=== PATIENT | female | born 1950 | race Caucasian/White ===

== ENCOUNTER → 2016-09-23 | Outpatient (CLI) | payer OTHER ==
--- NOTE | 2016-09-23 17:40 | MA ---
Screening Digital Mammogram with Digital Breast Tomosynthesis Clinical Indications: Routine screening. Previous history of breast cancer on the left. Technique: Standard cephalocaudal projections are obtained. Digital breast tomosynthesis was perform ed in the MLO projection with reconstruction at 1.0 mm slice thickness and composite MLO views recons tructed. This examination is processed by the CAD computer aided detection system. Comparison: July 21, 2016; April 12, 2016; October 07, 2015; and studies dating back to June 06, 2008. Breast density: B; There are scattered areas of fibroglandular density. Findings: CAD was reviewed. There are no new masses, new clusters of microcalcifications, or significant axillary lymphadenopathy . There are faint microcalcifications in the region of the lumpectomy site upper outer left breast. T his area had been recently biopsied with ultrasound guidance and revealed postsurgical changes includ ing fat necrosis. There is architectural distortion in this region also. Impression: Benign findings. BI-RADS 2. Recommendation: Routine screening mammogram is recommended in one year. [facility] will send a result letter to the patient. Negative mammography should not preclude additional workup of a clinically suspicious finding. The patient's information is entered into a reminder system with a target due date for her next mammo gram.
== END ==
LOC: FIMAGING 12:55
DX: Z12.31 Encounter for screening mammogram for malignant neoplasm of breast (principal); Z85.3 Personal history of malignant neoplasm of breast
CPT/HCPCS: G0202

== ENCOUNTER → 2017-06-01 | Outpatient (CLI) | payer OTHER | LOC: FIMAGING 14:00 | PROVIDERS: ATTEND Surgery | DX: R92.0 Mammographic microcalcification found on diagnostic imaging of breast (principal); C50.912 Malignant neoplasm of unspecified site of left female breast; Z80.3 Family history of malignant neoplasm of breast | CPT/HCPCS: G0206 ==

== ENCOUNTER → 2017-06-17 | Outpatient (CLI) | payer OTHER | LOC: FIMAGING 09:44 | PROVIDERS: ATTEND Internal Medicine Hematology & Oncology | DX: K76.0 Fatty (change of) liver, not elsewhere classified (principal) ==

== ENCOUNTER 2017-07-01 14:48 | Inpatient (IN) | payer OTHER ==
--- NOTE | 2017-07-01 15:51 | CPEKG ---
Heart Rate: 79 RR Interval: 759 P-R Interval: 196 QRSD Interval: 102 QT Interval: 396 QTC Interval: 455 P [place]: 50 QRS [place]: -7 T Wave [place]: 31 EKG Severity - BORDERLINE ECG - EKG Impression: SINUS RHYTHM EKG Impression: BORDERLINE R WAVE PROGRESSION, ANTERIOR LEADS EKG Impression: baseline artifact Electronically Signed By: Anali Mejía 01-Jul-2017 23:09:33
[2017-07-01] MEDS ORDERED: DIAZEPAM 10 MG/2 ML SYR ONE (16:12)
[2017-07-01] MEDS ORDERED: DIAZEPAM 10 MG/2 ML SYR IVP ONE (16:18)
[2017-07-01] MEDS ORDERED: ONDANSETRON 4 MG/2 ML VIAL IVP ONE ×2 (16:19→17:29)
--- NOTE | 2017-07-01 17:26 | EDPHY ---
H & P Smoking Status: Never smoked Time Seen by Provider: 07/01/17 16:59 HPI/ROS: CHIEF COMPLAINT: Neck pain HISTORY OF PRESENT ILLNESS: 67-year-old female presents to the emergency department by private vehicle complaining of severe left-sided neck pain. Patient states specially over the last 2 days she has had pain in the left side of her neck which is worse with movement. She states that she is cleaning out her basement and she may have overdone it. At 4 o'clock this morning she was a woken out of her sleep with severe pain in the left side of her neck. She has had radicular symptoms down her left arm. She has chronic numbness in both hands which she states is due to a magnesium deficiency. She denies chest pain or difficulty breathing. Denies a headache. She tried taking Robaxin without relief. No fevers or chills. She was feeling nauseous although no vomiting. REVIEW OF SYSTEMS: Constitutional: No fever, no chills. Eyes: No double or blurry vision. ENT: No sore throat. Respiratory: No cough, no shortness of breath. Cardiac: No chest pain. Gastrointestinal: Nausea. No abdominal pain, vomiting or diarrhea. Genitourinary: No dysuria. Musculoskeletal: Neck pain as above. Chronic back pain. Skin: No rashes. Neurological: No headache. (Steven Horton) Past Medical/Surgical History: Asthma GERD Graves, hypertension, sleep apnea, gout, cardiac arrhythmia with ablation, thyroid cancer, breast cancer in 2016 treated with lumpectomy and radiation. Lumbar fusion, bilateral knee replacements, hysterectomy, hypomagnesemia (Steven Horton) Social History: (Steven Horton) Physical Exam: General Appearance: Alert, no distress. Sitting upright in bed. Blood pressure 142/82, heart rate 91, 93% on room air, afebrile 36.5. Nontoxic appearing. Eyes: Pupils equal and round. Extraocular motions are all intact. ENT: Mouth: Mucous membranes moist. Respiratory: No wheezing, rhonchi, or rales, lungs are clear to auscultation. Cardiovascular: Regular rate and rhythm. Gastrointestinal: Abdomen is soft and nontender, no masses, no rebound or guarding, bowel sounds normal. Neurological: Alert and oriented x 3, cranial nerves II through XII grossly intact Skin: Warm and dry, no rashes. Musculoskeletal: Nontender to palpate along the cervical, thoracic or lumbar spine. Reproducible pain with palpation the left posterior aspect of her neck along the trapezius muscle. Patient has limited range of motion of her neck secondary to pain. Extremities: Full range of motion and no peripheral edema. Slight weakness in her left biceps compared to the right. Radial, medial, and ulnar nerves are all intact. Psychiatric: Patient is oriented X 3, there is no agitation. (Steven Horton) Constitutional: Initial Vital Signs Temperature (C) 36.5 C 07/01/17 14:58 Heart Rate 91 07/01/17 14:58 Respiratory Rate 18 07/01/17 14:58 Blood Pressure 142/82 H 07/01/17 14:58 O2 Sat (%) 93 07/01/17 14:58 O2 Delivery Mode Nasal Cannula O2 (L/minute) 2 Allergies/Adverse Reactions: cefazolin sodium [From Ancef] Allergy (Severe, Verified 02/27/16 17:08) SWELLING cephalexin monohydrate [From Keflex] Allergy (Severe, Verified 02/27/16 17:08) SWELLING Iodinated Contrast- Oral and IV Dye [IV Dye, Iodine Containing] Allergy (Severe , Verified 02/27/16 17:08) SWELLING Shellfish *RETIRED-05/22/12 [Shellfish] Allergy (Intermediate, Verified 17:08) iodine [Iodine] Allergy (Unknown, Verified 02/27/16 17:08) Penicillins Allergy (Unknown, Verified 02/27/16 17:08) Sulfa (Sulfonamide Antibiotics) Allergy (Unknown, Verified 02/27/16 17:08) amlodipine besylate [From Norvasc] Allergy (Verified 02/27/16 17:08) lisinopril Allergy (Verified 02/27/16 17:08) Home Medications: Medication Instructions Recorded Allopurinol [Allopurinol 300 MG 150 mg PO BID@07/16/14 (RX)] Aspirin EC [Aspirin EC 325 mg 325 mg PO DAILY@07/16/14 (OTC)] Atorvastatin Calcium [Lipitor 20 20 mg PO HS 07/16/14 mg (RX)] Calcium Carbonate [Tums 500MG 500 mg PO TID@,,07/16/14 (OTC)] Cholecalciferol (Vitamin D3) 2,000 unit PO DAILY@10 07/16/14 [Vitamin D3] Fluticasone/Salmeter 100/50Mcg 1 puffs IH BID 07/16/14 [Advair 100/50 (RX)] Levalbuterol Inhaler [Xopenex Hfa 1 - 2 puffs IH BID PRN 07/16/14 Inhaler (RX)] Levothyroxine [Synthroid] 175 mcg PO DAILY06 07/16/14 Magnesium Sulf 4 gm/Water 4 gm IV Q30D 07/16/14 [Magnesium Sulf 4 gm (Premix)] Ranitidine HCl 150 mg PO BID@,07/16/14 Valsartan [Diovan (RX)] 80 mg PO BID@,07/16/14 Amiloride [Amiloride 5 MG (RX)] 10 mg PO BID AT 7AM AND 3PM 07/01/17 Anastrozole [Arimidex 1 mg (*)] 1 mg PO DAILY@07/01/17 Calcitriol [Calcitriol (*)] 0.25 mg PO DAILY06 07/01/17 Felodipine [Plendil 5 MG (*)] 5 mg PO DAILY 07/01/17 Magnesium Chloride [Slow-Mag] 214.5 mg PO DAILY@02,13 07/01/17 Magnesium Oxide [Magnesium Oxide 1,200 mg PO DAILY@03,15,07/01/17 400 mg (*)] Methocarbamol [Robaxin 500 mg (*)] 1,000 mg PO HS 07/01/17 Methocarbamol [Robaxin 500 mg (*)] 500 mg PO TID 07/01/17 clonIDINE [Catapres-Tts 3] 1 each TD TU 07/01/17 Medical Decision Making - Diagnostics EKG Interpretation: 12 lead EKG is interpreted in Trace master View by emergency department physician. Baseline artifact. No acute ischemic changes. (Anali Mejía) Imaging Results: Imaging Impressions Cervical Spine MRI 07/01/17 17:29 Impression: 1. Multilevel spondylosis with disk and bony degenerative changes extending from the C2-C3 to the C6-C7 level and there is resulting multilevel canal stenosis and cord compression which has progressed mildly since 2010. 2. There is a eccentric disk abnormality towards the left at the C4-C5 level which is more pronounced than previously and may account for left radicular symptoms. 3. See above report for findings at specific levels. Results called and discussed with STEVEN HORTON on 07/01/2017 at 19:05 ED Course/Re-evaluation: 67-year-old female presents to the emergency department with neck pain. Given her symptoms as well as weakness in her left biceps, MRI of the cervical spine was ordered which revealed mild progression of cervical spine stenosis and cord compression at C2-C3, C4-5 especially on the left side, C6-7. The patient required IV morphine for pain relief. IV Valium did not relieve her pain. I discussed the findings of the MRI with the patient. The patient continued to have ongoing pain and required additional morphine IV. Patient will be admitted to the hospitalist, Dr. Moss. I spoke with the on-call neurosurgeon, Dr. Denisha Moreno, to make her aware that the patient is being admitted to the hospitalist the. Dr. Moreno was in the operating room at the time and then became disconnected via phone and did not call back. The patient has a history of arrhythmia and has had the above lesions. The patient is having left-sided neck pain was feeling nauseous. Cardiac enzymes, troponin was normal. EKG was unremarkable. The case was discussed with Dr. Anali Mejía, secondary supervising physician, who did not directly evaluate the patient but agrees with treatment and plan. ( Steven Horton) The patient was evaluated and managed by the physician tax assistant. I have reviewed this chart and I agree with the findings and plan of care as documented , as indicated by my signature. I am the secondary supervising physician. ( Anali Mejía) Differential Diagnosis: Neck pain including but not limited to muscular pain, herniated disc, spine fracture, dissection, cardiac arrhythmia (Steven Horton) - Data Points Laboratory Results: Laboratory Results 07/01/17 16:05 07/01/17 16:05 07/01/17 07/01/17 07/01/17 19:05 16:05 16:05 WBC 8.76 10^3/uL 10^3/uL (3.80-9.50) RBC 5.39 10^6/uL H 10^6/uL (4.18-5.33) Hgb 14.3 g/dL g/dL (12.6-16.3) Hct 44.8 % % (38.0-47.0) MCV 83.1 fL fL (81.5-99.8) MCH 26.5 pg L pg (27.9-34.1) MCHC 31.9 g/dL L g/dL (32.4-36.7) RDW 16.1 % H % (11.5-15.2) Plt Count 229 10^3/uL 10^3/uL (150-400) MPV 9.4 fL fL (8.7-11.7) Neut % (Auto) 65.9 % % (39.3-74.2) Lymph % (Auto) 22.9 % % (15.0-45.0) Evangeline % (Auto) 7.3 % % (4.5-13.0) Eos % (Auto) 3.1 % % (0.6-7.6) Baso % (Auto) 0.5 % % (0.3-1.7) Nucleat RBC Rel Count 0.0 % % (0.0-0.2) Absolute Neuts (auto) 5.77 10^3/uL 10^3/uL (1.70-6.50) Absolute Lymphs (auto) 2.01 10^3/uL 10^3/uL (1.00-3.00) Absolute Monos (auto) 0.64 10^3/uL 10^3/uL (0.30-0.80) Absolute Eos (auto) 0.27 10^3/uL 10^3/uL (0.03-0.40) Absolute Basos (auto) 0.04 10^3/uL 10^3/uL (0.02-0.10) Absolute Nucleated RBC 0.00 10^3/uL 10^3/uL (0-0.01) Immature Gran % 0.3 % % (0.0-1.1) Immature Gran # 0.03 10^3/uL 10^3/uL (0.00-0.10) Sodium 142 mEq/L mEq/L (134-144) Potassium 4.3 mEq/L mEq/L (3.5-5.2) Chloride 102 mEq/L mEq/L (97-110) Carbon Dioxide 26 mEq/l mEq/l (22-31) Anion Gap 14 mEq/L mEq/L (8-16) BUN 16 mg/dL mg/dL (7-23) Creatinine 0.9 mg/dL mg/dL (0.6-1.0) Estimated GFR > 60 Glucose 105 mg/dL H mg/dL (70-100) Calcium 9.3 mg/dL mg/dL (8.5-10.4) Magnesium 1.6 mg/dL mg/dL (1.6-2.3) Troponin I < 0.012 ng/mL ng/mL (0.000-0.034) Medications Given: Hydrocodone Bitart/Acetaminophen ([place] 5/325) 1 - 2 tab PO Q4HRS PRN PRN Reason: Pain, Moderate Able to Take PO Stop: 07/11/17 22:28 Last Admin: 07/01/17 23:03 Dose: 1 tab Ondansetron HCl (Zofran) 4 mg IVP Q4HRS PRN PRN Reason: Nausea/Vomiting, Can't Take PO Stop: 12/28/17 22:28 Last Admin: 07/01/17 23:03 Dose: 4 mg Discontinued Medications Diazepam (Valium Injection) 5 mg IVP EDNOW ONE Stop: 07/01/17 16:19 Last Admin: 07/01/17 16:18 Dose: 5 mg Morphine Sulfate (Morphine) 4 mg IVP EDNOW ONE Stop: 07/01/17 17:30 Last Admin: 07/01/17 17:43 Dose: 4 mg Morphine Sulfate (Morphine) 4 mg IVP EDNOW ONE Stop: 07/01/17 19:13 Last Admin: 07/01/17 19:18 Dose: 4 mg Ondansetron HCl (Zofran) 4 mg IVP EDNOW ONE Stop: 07/01/17 16:20 Last Admin: 07/01/17 16:22 Dose: 4 mg Ondansetron HCl (Zofran) 4 mg IVP EDNOW ONE Stop: 07/01/17 17:30 Last Admin: 07/01/17 17:42 Dose: 4 mg Promethazine HCl (Phenergan) 12.5 mg IVP EDNOW ONE Stop: 07/01/17 19:13 Last Admin: 07/01/17 19:17 Dose: 12.5 mg Departure - Departure Disposition: [facility] Inpatient Acute Clinical Impression: Cervical stenosis of spine, Neck pain Condition: Good
[2017-07-01 17:56] LABS: HEMATOCRIT 44.8 % (38.0-47.0); HEMOGLOBIN 14.3 g/dL (12.6-16.3); MEAN CELL HEMOGLOBIN 26.5 pg (27.9-34.1); MEAN CELL HEMOGLOBIN CONCENTR. 31.9 g/dL (32.4-36.7); MEAN CELL VOLUME 83.1 fL (81.5-99.8); MEAN PLATELET VOLUME 9.4 fL (8.7-11.7); PLATELET COUNT 229 10^3/uL (150-400); RED BLOOD CELL COUNT 5.39 10^6/uL (4.18-5.33); RED CELL DISTRIBUTION WIDTH 16.1 % (11.5-15.2)
[2017-07-01 17:57] LABS: % IMMATURE GRANULYOCYTES 0.3 % (0.0-1.1); ABSOLUTE IMMATURE GRANULOCYTES 0.03 10^3/uL (0.00-0.10); ADD DIFF? NO; ADD MORPH? NO; ADD SCAN? NO; ATYPICAL LYMPHOCYTE FLAG 0 (0-99); FRAGMENT RBC FLAG 0 (0-99); LEFT SHIFT FLG 0 (0-99); LIPEMIA HEMOLYSIS FLAG 80 (0-99); PLATELET CLUMPS FLAG 10 (0-99)
[2017-07-01 17:58] LABS: ANION GAP 14 mEq/L (8-16); CALCIUM 9.3 mg/dL (8.5-10.4); CARBON DIOXIDE 26 mEq/l (22-31); CHLORIDE 102 mEq/L (97-110); CREATININE 0.9 mg/dL (0.6-1.0); GLOMERULAR FILTRATION RATE > 60; GLUCOSE 105 mg/dL (70-100); POTASSIUM 4.3 mEq/L (3.5-5.2); SODIUM 142 mEq/L (134-144)
[2017-07-01 18:10] LABS: TROPONIN I < 0.012 ng/mL (0.000-0.034)
[2017-07-01] MEDS ORDERED: PROMETHAZINE HCL 25 MG/ML INJ IVP ONE (19:12)
[2017-07-01] MEDS ORDERED: PROMETHAZINE HCL 25 MG/ML INJ ONE (19:13)
[2017-07-01] MEDS ORDERED: HYDROmorphONE/DILAUDID 1 MG/ML INJ IVP PRN (22:29)
[2017-07-01] MEDS ORDERED: ONDANSETRON 4 MG/2 ML VIAL IVP PRN (22:29)
[2017-07-01] MEDS ORDERED: LORazepam 2 MG/ML INJ IVP PRN (22:29)
[2017-07-01] MEDS ORDERED: ACETAMINOPHEN 325 MG TAB PO PRN (22:29)
[2017-07-01] MEDS ORDERED: NS 1,000 ML IV SCH (22:30)
[2017-07-01] MEDS: HYDROCODONE/APAP 5/325 TAB PO PRN (23:03)
[2017-07-01] MEDS ORDERED: hydrALAZINE 20 MG/ML VIAL IVP PRN (23:49)
[2017-07-02] MEDS ORDERED: ALBUTEROL 3 ML DEYVIAL IH PRN (00:06)
[2017-07-02] MEDS: HYDROCODONE/APAP 5/325 TAB PO PRN ×3 (00:26→13:17)
[2017-07-02] MEDS: GABAPENTIN 100 MG CAP PO PRN ×2 (00:29→08:30)
--- NOTE | 2017-07-02 01:06 | GCON ---
[f rep st] CONSULTATION NEUROSURGICAL CONSULTATION DATE OF CONSULTATION: 07/02/2017 CHIEF COMPLAINT: Left trapezius pain, left deltoid pain. HISTORY OF PRESENT ILLNESS: This is a 67-year-old female with multiple medical problems, who is curr ently on chemotherapy for breast cancer, who states approximately 2 days ago she developed severe lef t-sided trapezius neck pain that was described as a deep dull ache with intermittent muscle spasm debra t radiates down to the lateral aspect of the deltoid on the left only. She denies any other arm pain . She denies any weakness, although they said in the emergency department she had some biceps weakne ss she did not notice. She does have hand paresthesias. She also states her hands develop paresthes ias and then get very cold and then get very hot and cool off. Usually her hand paresthesias are sec ondary to magnesium deficiency. She takes magnesium and they resolve. They did not resolve tonight. She came in for severe pain. The pain is worse with left neck rotation and is alleviated with rest. She states that it started approximately 2 days ago after cleaning out her basement. She does not h ave any other radicular type symptoms or arm pain. She denies any balance difficulties other than oc casionally she states she has felt off balance and it is more described as a lightheaded feeling more than it is a gait dysfunction, myelopathic type balance issue. She did take Robaxin to help treat her pain which she rated 4 to 5/10 without any relief. She has di fficulty taking many pain medications secondary to chronic renal failure. She denies any bowel or bl adder dysfunction. PAST MEDICAL HISTORY: Asthma, GERD, Grave's, hypertension, sleep apnea, gout, cardiac arrhythmia wit h ablation, thyroid cancer, breast cancer treated with lumpectomy and radiation and chemotherapy, lum bar fusion, bilateral knee replacements, hysterectomy, hypomagnesemia. PAST SURGICAL HISTORY: Bilateral total knees, cardiac ablation, hysterectomy, lumpectomy. FAMILY HISTORY: She does not have a family history significant for this complaint. SOCIAL HISTORY: She does not smoke. She does drink alcohol. She does not use illicit drugs. She i s . ALLERGIES: Cefazolin, sodium, cephalexin, monohydrate, oral and IV contrast dye, penicillins, Norvas c, lisinopril. HOME MEDICATIONS: 1. Robaxin. 2. Ranitidine. 3. Xopenex. 4. Amiloride. 5. Magnesium. 6. Flomax. 7. Plendil. 8. Magnesium sulfate. 9. Anastrazole. 10. Allopurinol. 11. Calcitriol. 12. Lipitor. 13. Tums. 14. Advair. 15. Vitamin D3. 16. Levothyroxine. 17. Clonidine. 18. Valsartan. 19. Aspirin. 20. Oral chemotherapeutic agent. REVIEW OF SYSTEMS: Complete 10 system review of systems performed by myself was negative except as s tated above. VITAL SIGNS: Blood pressure is 157/68, heart rate is 71, respiratory rate is 16, saturating 94% on 2 L nasal cannula. Temperature is 36.7 degrees Celsius. LABORATORY DATA: White blood cell count 8.76, hemoglobin 14.3, hematocrit 44.8, platelets are 229. Sodium 142, potassium 4.3, chloride 102. BUN 16, creatinine 0.2, glucose 105. MRI of the cervical spine performed today reveals cervical vertebral bodies are normal height signal intensity without compression fractures or spondylolisthesis at C1-2 articulation. Cranial vertebral junction appear normal. Cerebellar tonsils are in normal position. Cervical spinal cord demonstrat es normal signal without cord edema or myelomalacia. At C2-3, there is minimal bony spurring, no can al stenosis or disk herniation. At C3-4, a disk bulge is seen associated with vertebral body spondylo sis and endplate changes and there is resulting central canal stenosis that is mild with contacting o f the cord they call cord compression but contacting the cord at C3-4 and C4-5 there is a diffuse dis k bulge and subligamentous disk herniation resulting in canal stenosis and ventral cord compression a bnormalities, eccentric toward the left where there is lateral recess impingement in the medial aspec t of the neural foramina. At C5-6, there is minimal anterolisthesis of C6 with respect to C5 which is unchanged. There is mild diffuse disk bulge resulting in effacement of the subarachnoid space and mild cord compression. At C6-7, disk space loss and diffuse disk bulge resulting in effacement of the subarachnoid space and mi ld cord compression without nerve root impingement. At C7-T1, there is minimal anterolisthesis of C7 with respect to T1 without canal stenosis or cord compression. She is alert and oriented x3. Pupil s are equal, round, reactive to light and accommodation. External ocular muscles are intact. There is no facial asymmetry of tongue deviation. Sensation is intact V1, V2, V3 distributions 5th cranial nerve bilaterally. Strength is 5/5 to bilateral deltoids, biceps, triceps, wrist flexors, wrist ext ensors, hand intrinsics, iliopsoas, quadriceps, hamstrings, dorsiflexors, plantar flexors, EHLs. DTR s are +2/4 biceps, brachioradialis, patellar and Achilles. There is no Sears's. There is no clonu s. Sensation is intact to all dermatomal distributions of the upper and lower extremities bilaterall y. IMPRESSION AND PLAN: This is a 67-year-old female, some mild to moderate cervical spondylosis with s ome left-sided neck pain of 2 days with mild C5 radiculopathy to the lateral deltoid without any neur ologic deficit. She is a high risk from medical perspective for any kind of an invasive procedure, w hether it be an epidural steroid injection given the fact that she is on oral chemotherapeutic agent, or a cervical surgical intervention. At this point in time, there is no indication for surgery in this patient who is neurologically intac t. We recommend pain control and physical therapy and follow up as an outpatient. She was in agreem ent with this and she may follow up with our office in approximately 4 weeks after she has completed PT. Please call with any changes in her neurologic status. /[id number]/MODL
--- NOTE | 2017-07-02 01:20 | GHP ---
[f rep st] HISTORY AND PHYSICAL DATE OF ADMISSION: 07/01/2017 SOURCE: The patient provides history, appears reliable. Her electronic medical record also reviewed . CHIEF COMPLAINT: Left neck and arm pain. 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 The patient reports that she had been cleaning up her bas ement for the last several days and feels like she may have overexerted herself. She developed incre asing left neck pains and spasm with radiation down her shoulder to over her proximal arm. She has a history of persistent bilateral hand numbness and tingling, felt related to her history of electroly te abnormalities with her hypoparathyroidism, which is usually corrected with magnesium and calcium r eplacement. The patient reports that this is slightly worse. She has always had a little bit more w eakness on the left arm compared to the right. The patient initially thought that this was related t o her history of lumpectomy with lymph node dissection with resultant lymphedema on the left arm. Th e patient's pain was increasing in severity. She is not able to lift or hold any items. She denies any complete flaccidity, just weakness and decreased strength. The patient did try to take additiona l Robaxin without improvement in her pain. The patient was also concerned regarding her symptoms, sh e does have a history of ventricular arrhythmia and previous palpitations, which have been under cont rol, status post an ablation; however, her symptoms were similar in that she felt radiation from her left upper chest to her back, and up her neck and down her arm. The patient does admit to some assoc iated nausea, diaphoresis at time of onset earlier today before presenting to the emergency departmen t. The patient reports that she continues to have some numbness, tingling, and spasms in her left po sterior neck and down her shoulder over her arm. Her nausea, diaphoresis, and shortness of breath escobedo ve resolved. REVIEW OF SYSTEMS: GENERAL: No fevers chills. SKIN: No rash or sores. ENT: Positive for congest ion. No rhinorrhea. No sore throat. EYES: The patient does wear glasses. Denies any acute change in her vision. CV: The patient does report the chest pain as noted above in the HPI. No current p alpitations. RESPIRATORY: Positive for shortness of breath without any wheezing. The patient does report an asthma exacerbation 2 weeks ago, now resolved, currently without shortness of breath. GI: Positive for history of nausea, resolved. No vomiting or diarrhea. The patient reports that she ch ronically has some loose stools related to her scheduled magnesium intake, but denies any melena or h ematochezia. : No dysuria or hematuria. MUSCULOSKELETAL: See HPI. The patient otherwise denies myalgias. She does also have some neuropathy in the bilateral lower extremities. NEURO: Positive for headaches the last 2 days with increased pain and neck pain and spasm. 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 PSYCH: The patient denies anxiety or depression. ALLERGIES: Multiple, including cefazolin, Keflex, contrast, shellfish, iodine, sulfa, amlodipine fro m Norvasc, but the patient has been able to take felodipine on her home medication list, and lisinopr il. The patient is on valsartan. HOME MEDICATIONS: Methocarbamol 1000 mg p.o. at bedtime, 500 mg p.o. t.i.d. Ranitidine 150 mg p.o. b.i.d. Xopenex 1-2 puffs inhaled twice daily p.r.n. Amiloride 10 mg p.o. b.i.d. at 7 and 3. Magnes ium oxide 1200 mg p.o. at 3 a.m., p.m., 8 o'clock. Magnesium chloride 214.5 mg at 2 and 1300. Felod ipine 5 mg p.o. daily. Magnesium sulfate IV infusion 4 g every 30 days. Arimidex 1 mg p.o. daily at 5. Allopurinol 150 mg p.o. b.i.d. at 7 a.m. and p.m. Calcitriol 0.25 mg p.o. daily. Atorvastatin 20 mg p.o. at h.s. Calcium carbonate 500 mg p.o. t.i.d. at 10, 4, and 9. Advair 10/50 mcg 1 puff in haled twice daily. Vitamin D3 2000 units p.o. daily at 10. Levothyroxine 175 mcg p.o. daily at 6. Clonidine patch changed weekly on Tuesdays. Valsartan 80 mg p.o. b.i.d. at 8 and 5. Aspirin 325 mg p.o. daily at 10. PAST MEDICAL HISTORY: Significant for chronic neck and back pain, GERD, morbid obesity with current BMI of 49.4, CKD stage 3 with reported baseline creatinine of 1.2, gout, hyperlipidemia, hypertension , hypoparathyroidism status post parathyroidectomy, electrolyte imbalance related to above, hypothyro idism as a result of ERIKA for Graves disease, breast cancer status post lumpectomy with revision and l ymph node dissection on the left arm with lymphedema, parathyroid adenoma status post resection, asth ma, GUANAKO on CPAP, ventricular arrhythmia status post ablation. PAST SURGICAL HISTORY: Significant for cardiac ablation, parathyroidectomy, lumpectomy with revision and lymph node dissection on the left arm, lumbar fusion L5-S1, bilateral total knee arthroplasty, h ysterectomy, D and C. Prior to her TKA, she had multiple knee surgeries, she reports up to 10. FAMILY HISTORY: Significant for father with CAD and VA, at age 79 related to VA. Mother wi th history of CVA, CAD, and Graves disease. One sister with history of breast cancer. Another siste r with complications from surgery, . SOCIAL HISTORY: The patient is , lives with her . She does not smoke or drink or do d rugs. CODE STATUS: Full. Patient without advance directives, but desires her to act as proxy if n eeded. PHYSICAL EXAMINATION: PHYSICAL EXAMINATION: On arrival, blood pressure 142/82, heart rate 91, respi ratory rate 18, O2 saturation 93% on room air, temperature 36.5. Current blood pressure 157/68, hear t rate 71, respiratory rate 16, 94% on 2 L by nasal cannula, with a temperature 36.7. GENERAL: No a cute distress. Very pleasant, morbidly obese female sitting on the edge of the bed, holding her left arm resting at the side with decreased movement. HEAD: Normocephalic, atraumatic. EYES: Extraocu lar muscles are intact. Pupils equal, round, and reactive to light bilaterally and symmetrically. N o scleral icterus or conjunctival injection. ENT: Mucous membranes appear slightly dry. No pharyng eal erythema or exudates. NECK: Supple. Patient's trachea midline. Patient does have notable spas m and tenderness to the posterior base of the head and neck. She has some decreased range of motion, primarily related to pain. No meningeal signs. CV: Regular rate and rhythm. No murmurs, rubs, or gallops appreciated. RESPIRATORY: Diminished breath sounds bilaterally with decreased inspiratory effort, likely related to body habitus. No wheezes, rales, or rhonchi appreciated. ABDOMEN: Obese, soft, nontender to palpation. No rebound, guarding, or masses appreciated. : No suprapubic tend erness to palpation. No Ibarra in place. MUSCULOSKELETAL: Generalized deconditioning. The patient' s strength in the left arm proximally and distally are weaker as compared to the right side. The pat ient is able to move both arms with decreased range of motion on the left compared to the right. The patient is able to move her bilateral lower extremities. Sensation is diminished on the left latera l neck and shoulder and posterior arm, but otherwise sensation intact to the remainder of extremities . PSYCH: The patient's thought process, content, and questions are appropriate. She does appear a little bit anxious, but she is very pleasant. LABORATORY STUDIES: WBC 8.76, H and H are 14.3 and 44.8, MCV is 83.1, platelet count is 229. Sodium is 142, potassium 4.3, chloride 102, CO2 26, BUN 16, creatinine 0.9, GFR greater than 60, glucose 10 5, calcium 9.3, magnesium 1.6. Troponin is less than 0.012. EKG, reviewed myself: Normal sinus rhythm in the 70s. No acute ST changes. Some artifact at baseli ne. QTc 455. Cervical spine MRI report reviewed. Image review is limited on current computer access. The report shows multilevel spondylosis with disk and bony degenerative changes extending from C2 to C3 to the C 6-7, and resulting multilevel canal stenosis and cord compression with spurs progressed mildly since 2010. There is eccentric disk abnormalities toward the left at the C4-5 level, which is more pronoun umesh than previously, and may account for left radicular symptoms. C4-5 diffuse disk bulge or subliga mentous disk herniation resulting in canal stenosis and cord compression. ASSESSMENT AND PLAN: This pleasant 67-year-old female presents with [id number] left neck pain with radicular symptoms. 1. Cervical spine stenosis with disk herniation. Neurosurgery was consulted from the emergency depa rtment, and consultation to assist with recommendations was requested. Pending further evaluation, t he patient will be made n.p.o. except for medications. 2. Left neck pain with radicular symptoms. The patient continues to have significant pain and limit ed range of motion. Will do a trial of gabapentin p.r.n. Dilaudid and continue her Robaxin p.r.n. A lso will add a K-pad for some spasm activity that is likely related. 3. Left arm weakness. Awaiting neurosurgical recommendations and anticipate need for PT/OT. 4. Benign essential hypertension. Blood pressures at this time are acceptable. Resume the patient' s felodipine. Continue her clonidine patch and valsartan. 5. Gastroesophageal reflux disease. Continue H2 singh. 6. History of chronic kidney disease stage 3 with baseline creatinine 1.2. Creatinine currently imp roved. Will continue to monitor. Gentle hydration overnight. Monitor for fluid status. 7. Gout. Continue allopurinol. 8. Hyperlipidemia. Resume statin. 9. Hypoparathyroidism. Continue with aggressive electrolyte replacement with magnesium and oral garo cium. 10. Hypothyroidism. Continue levothyroxine. 11. Breast cancer. Resume the patient's Arimidex. 12. Asthma. Continue with the patient's regular inhaled steroid and long-acting beta-agonist. Albu terol nebulizer will be made available p.r.n. 13. Morbid obesity. Mobilization. Patient diet currently held. Will consider reduced-calorie diet . 14. Obstructive sleep apnea. Continue CPAP. The patient has brought her machine from home. 15. History of arrhythmia. Patient without any current complaints, and EKG is normal sinus. 16. Fluid, electrolyte, nutrition. Continue with some gentle intravenous fluid hydration overnight while the patient is n.p.o. Electrolyte replacement per her patient schedule and as needed. 17. Prophylaxis. Sequential compression devices, holding anticoagulation pending Neurosurgery recom mendations. 18. Code status is full. Patient without advance directives and desires to act as proxy if needed. DISPOSITION: Patient admitted to inpatient status on the ortho floor. Patient with significant pain and showing signs of weakness. Anticipate that she will require focused management for pain control while awaiting neurosurgical recommendations. /[id number]/MODL
--- NOTE | 2017-07-02 01:49 | PDMN ---
Medical Necessity Medical necessity: C/M review: est. > 2 MN LOS for eval and TX of acute and persistent cervical spine stenosis with disk herniation. significant left neck pain with radicular symptoms, left arm weakness requiring possible future acute inpt PT/OT, ongoing pain management, IV fluids, pulse oximetry, supplemental O2 , comorbid benign essential hypertension, GERD, gout, hyperlipidemia, hypoparathyroidism, asthma, morbid obesity, obstructive sleep apnea, Hx chronic stage 3 kidney disease, breast cancer, arrhythmia per H/P.
[2017-07-02] MEDS ORDERED: MAGNESIUM OXIDE 400 MG TAB PO SCH (02:00)
[2017-07-02] MEDS: MAGNESIUM OXIDE 400 MG TAB PO SCH ×2 (03:03→10:17)
[2017-07-02] MEDS: MAGNESIUM CHLORIDE 64 MG TAB PO SCH ×2 (03:05→08:33)
[2017-07-02 05:28] LABS: % IMMATURE GRANULYOCYTES 0.4 % (0.0-1.1); ABSOLUTE IMMATURE GRANULOCYTES 0.04 10^3/uL (0.00-0.10); ADD DIFF? NO; ADD MORPH? NO; ADD SCAN? NO; ATYPICAL LYMPHOCYTE FLAG 0 (0-99); FRAGMENT RBC FLAG 0 (0-99); HEMOGLOBIN 12.7 g/dL (12.6-16.3); LEFT SHIFT FLG 10 (0-99); LIPEMIA HEMOLYSIS FLAG 80 (0-99); MEAN CELL HEMOGLOBIN 26.8 pg (27.9-34.1); MEAN CELL HEMOGLOBIN CONCENTR. 31.8 g/dL (32.4-36.7); MEAN CELL VOLUME 84.4 fL (81.5-99.8); MEAN PLATELET VOLUME 8.8 fL (8.7-11.7); PLATELET CLUMPS FLAG 0 (0-99); PLATELET COUNT 192 10^3/uL (150-400); RED BLOOD CELL COUNT 4.74 10^6/uL (4.18-5.33); RED CELL DISTRIBUTION WIDTH 15.8 % (11.5-15.2)
[2017-07-02 05:40] LABS: INR 1.13 (0.83-1.16); PROTIME(PATIENT) 14.4 SEC (12.0-15.0)
[2017-07-02 05:41] LABS: APTT 35.6 SEC (23.0-38.0)
[2017-07-02 05:58] LABS: ANION GAP 13 mEq/L (8-16); CALCIUM 8.9 mg/dL (8.5-10.4); CARBON DIOXIDE 27 mEq/l (22-31); CHLORIDE 102 mEq/L (97-110); CREATININE 1.5 mg/dL (0.6-1.0); GLOMERULAR FILTRATION RATE 35; GLUCOSE 99 mg/dL (70-100); MAGNESIUM 1.8 mg/dL (1.6-2.3); POTASSIUM 4.8 mEq/L (3.5-5.2); SODIUM 142 mEq/L (134-144)
[2017-07-02] MEDS ORDERED: CALCITRIOL 0.25 MCG CAP PO SCH ×2 (06:00)
[2017-07-02] MEDS ORDERED: LEVOTHYROXINE 175 MCG TAB PO SCH (06:00)
[2017-07-02] MEDS ORDERED: ALLOPURINOL 300 MG TAB PO SCH (07:00)
[2017-07-02] MEDS ORDERED: AMILORIDE 5 MG TAB PO SCH (07:00)
[2017-07-02] MEDS ORDERED: VALSARTAN 80 MG TAB PO SCH (08:00)
[2017-07-02] MEDS ORDERED: FAMOTIDINE 20 MG TAB PO SCH (08:00)
[2017-07-02 08:14] VITALS: BP 137/76; TEMP 97.7
--- NOTE | 2017-07-02 08:14 | NEUSURGPN ---
Assessment/Plan: 67y/o female with left arm/neck pain with multi level spondylosis in her neck. She is undergoing active treatment for her breast CA. Would recommended optimizing pain management. PT/OT. Follow up with Dr. Moreno's office in 2- 4weeks. Please notify NS with any change in neuro/motor exam. Discussed with Dr. Moreno Subjective: left sided neck pain.shoulder pain. Denies any new weakness. Objective: NAD A&Ox3 MAEx4 5/5 and equal in BUE and BLE. Sensation intact. - Physician Discussed Patient with Dr.: Moreno Neurosurgery Physical Exam - Vitals, I&O, Labs I and O 07/01/17 07/02/17 07/03/17 05:59 05:59 05:59 Weight 122.1 kg Other: Intake Quantity Yes Sufficient Number of Voids Toilet 1 Vital Signs Temp Pulse Resp BP Pulse Ox 36.6 C 73 14 154/94 H 86 L 07/02/17 04:00 07/02/17 04:00 07/02/17 04:00 07/02/17 06:07 07/02/17 04:00 Laboratory Results 07/02/17 05:07 07/02/17 05:07 ICD10 Worksheet Patient Problems: Problems Problem Status Onset Cervical stenosis of spine Acute Neck pain Acute
--- NOTE | 2017-07-02 08:29 | HOSPPROG ---
Hospitalist Progress Note Assessment/Plan: Patient is a 67-year-old female with multiple medical problems. She presented to the emergency room with left neck pain and arm pain. She has a history of chronic neck and back pain. * neck pain. -the CT scan shows multiple level spondylosis with disc and bony degenerative changes extending from C2-C3 to C6-C7 resulting in multilevel canal stenosis and cord compression with spurs that is mildly progressed since 2010 there also multiple abnormalities. -reviewed neurosurgery notes they are recommending is for her to follow up with them and do pain management at this time -a trial of gabapentin p.r.n. and Robaxin has been added * breast cancer -resumed arm index * morbid obesity with a BMI of 49.2 *Asthma *Hyperlipidemia * gout * hypertension *hypoxemia -suspect she may have some underlying morbid obesity hypoventilation syndrome -will have the nursing staff check currently she is on room air. * plan. Possible discharge after further evaluation by her oxygen levels. And she is to see Dr. Moreno in the next 2 weeks. Subjective: Neck pain is on completely resolved. She is feeling much better Objective: Vital Signs Temp Pulse Resp BP Pulse Ox 36.5 C 73 16 137/76 H 93 07/02/17 08:00 07/02/17 08:00 07/02/17 08:00 07/02/17 08:00 07/02/17 08:00 Laboratory Results 07/02/17 05:07 07/02/17 05:07 PT 14.4 SEC (12.0-15.0) 07/02/17 05:07 INR 1.13 (0.83-1.16) 07/02/17 05:07 - Physical Exam Constitutional: no apparent distress, not in pain, obese Eyes: PERRL Ears, Nose, Mouth, Throat: hearing normal Cardiovascular: regular rate and rhythym Respiratory: no respiratory distress, reduced air movement (Bibasilar) Gastrointestinal: normoactive bowel sounds Skin: warm Musculoskeletal: generalized weakness Neurologic: AAOx3 Psychiatric: interacting appropriately, not anxious ICD10 Worksheet Patient Problems: Problems Problem Status Onset Cervical stenosis of spine Acute Neck pain Acute
[2017-07-02] MEDS ORDERED: FELODIPINE 5 MG TAB.ER PO SCH (09:00)
[2017-07-02] MEDS ORDERED: METHOCARBAMOL 500 MG TAB PO SCH ×2 (09:00→21:00)
[2017-07-02] MEDS ORDERED: FLUTICASONE/SALMETER 100/50MCG DISKUS IH SCH (09:00)
[2017-07-02] MEDS ORDERED: CHOLECALCIFEROL VIT D3 2,000 UNITS TAB/CAP PO SCH (10:00)
[2017-07-02] MEDS ORDERED: CALCIUM CARBONATE 500 MG CHEWABLE TAB PO SCH (10:00)
[2017-07-02] MEDS ORDERED: ASPIRIN EC 325 MG TAB PO SCH (10:00)
--- NOTE | 2017-07-02 10:19 | PDHOMEO2F ---
Home Oxygen Face to Face Home Orders: I certify that a physician or a nurse practitioner or physician's educational assistant teacher has had a [id number] encounter with this patient on the date of this order due to the diagnosis listed, which relates to the primary reason the patient requires home oxygen. Alternative treatments have been tried, or considered, and deemed ineffective. It is anticipated that supplemental oxygen will result in improvement with treatment. Home oxygen qualifying diagnosis: hypoventilatory syndrome secondary to obesity Home oxygen secondary diagnosis: asthma SpO2 on room air (%): 81% Frequency of home oxygen needed: continuous Home oxygen liters per minute: 2 Home oxygen delivery device: nasal cannula Concentrator: Yes E-tanks for mobility and back up: Yes If ordering portable O2, is the patient mobile in the home?: Yes I certify that, based on these findings, the home oxygen is medically necessary for this patient for the following length of time. Length of time home oxygen needed: 99 years
--- NOTE | 2017-07-02 10:22 | GDS ---
[f rep st] DISCHARGE SUMMARY DISCHARGE DIAGNOSES: 1. Neck pain. This is secondary to multilevel spondylosis in the neck area. 2. Breast cancer. 3. Morbid obesity with a BMI of 49. 4. Asthma. 5. Hyperlipidemia. 6. Gout. 7. Hypertension. 8. Hypoxemia. CONSULTATION: Dr. Denisha Moreno. HISTORY OF PRESENT ILLNESS: Briefly, this patient is a 67-year-old woman who presented to the emergency room with neck pain. She has multiple medical problems. She developed severe left trapezius/neck pain that was described as a deep dull ache with intermittent muscle spasms. She came in for severe pain. It was mainly worse in the left neck area and alleviated with rest. She does take Robaxin to help treat the pain. She was seen and evaluated by Neurosurgery, who said there was no indication for surgery in her because she is neurologically intact. Recommendation was pain control and outpatient physical therapy and occupational therapy. The recommendation was for her to follow up with Dr. Moreno in the outpatient setting in 4 weeks. HOSPITAL COURSE BY PROBLEM: 1. Neck pain. This is secondary to multilevel spondylosis. Recommend outpatient PT and OT. Will give her a script for 10 of [place] in case she has acute severe pain. In addition, will do a trial of Gabapentin. 2. Breast cancer. Resumed Arimidex. 3. Morbid obesity. She has a BMI of 49.2. This is likely impacting her health. 4. Asthma, stable. 5. Hyperlipidemia, on statin. 6. Gout. No complaints. 7. Hypertension. Blood pressure was stable. 8. Hypoxemia. I suspect she may have some hypoventilation syndrome secondary to her morbid obesity. Home oxygen has been ordered. CONDITION AT DISCHARGE: Stable. Blood pressure is 132/76, O2 sats on 2 L 93%, respiratory rate is 16, pulse 73, temperature is 36.7 Celsius. MEDICATIONS AT DISCHARGE: Please see the EMR. DISCHARGE INSTRUCTIONS: 1. To follow up with Dr. Moreno in 4 weeks. 2. Recommend outpatient physical therapy and occupational therapy. 3. If she develops any increased pain or loss of sensation to return to the ER. Copy requested to: Dr. Moreno /[id number]/MODL MTDD
[2017-07-02 10:37] VITALS: PULSE 74; RESP 18; O2SAT 86
--- NOTE | 2017-07-02 13:48 | ASDISCHSUM ---
Discharge Information Plan Status:Home with No Needs Medically Cleared to Leave: Discharge Date:07/02/2017 01:31 PM CM D/C Disposition:Home, Routine, Self-Care ADT D/C Disposition:Home, Routine, Self-Care Projected Discharge Date:07/02/2017 01:31 PM Transportation at D/C: Discharge Delay Reason: Follow-Up Date:07/02/2017 01:31 PM Discharge Slot: Final Diagnosis: Placement Information Patient Contact Information Contact Name:DANISHBARBRAVI Relationship: Address:[address] City:[place] Alternate Phone: [facility]/Zip Code:[place] [address] Email: Financial Information Financial Class: Primary Plan Desc:MEDICARE OUTPATIENT Primary Plan Number:[id number] Secondary Plan Desc:[facility] [employer] Secondary Plan Number:[id number] Assessment Information Intervention Information Intervention Type:*Incorrect Registration Date of Service:07/01/2017 10:29 PM Patient Type:Inpatient Staff Member:MARIA ISABEL Griffin Shelly Hours:0.25 Discipline: Severity:1 (0-1 Hours) Comment:Registered observation, admit order wr itten inpatient status.
[2017-07-02] MEDS ORDERED: ANASTROZOLE 1 MG TAB PO SCH (17:00)
[2017-07-02] MEDS ORDERED: ATORVASTATIN CALCIUM 20 MG TAB PO SCH (21:00)
== END 2017-07-02 13:31 | disposition home or self-care (01) | DRG 552 ==
LOC: F3N 20:42 → OBSVTOIN 22:29
PROVIDERS: ADMIT Family Medicine; ATTEND Family Medicine
DX: M47.22 Other spondylosis with radiculopathy, cervical region (principal); M48.02 Spinal stenosis, cervical region; M50.10 Cervical disc disorder with radiculopathy, unspecified cervical region; E83.42 Hypomagnesemia; I12.9 Hypertensive chronic kidney disease with stage 1 through stage 4 chronic kidney disease, or unspecified chronic kidney disease; N18.3 Chronic kidney disease, stage 3 (moderate); G47.33 Obstructive sleep apnea (adult) (pediatric); E66.01 Morbid (severe) obesity due to excess calories; Z68.42 Body mass index [BMI] 45.0-49.9, adult; K21.9 Gastro-esophageal reflux disease without esophagitis; E78.5 Hyperlipidemia, unspecified; E05.00 Thyrotoxicosis with diffuse goiter without thyrotoxic crisis or storm; M10.9 Gout, unspecified; J45.909 Unspecified asthma, uncomplicated; Z98.1 Arthrodesis status; Z96.653 Presence of artificial knee joint, bilateral; Z85.850 Personal history of malignant neoplasm of thyroid; Z85.3 Personal history of malignant neoplasm of breast
CPT/HCPCS: 96374; J2405; J2550

== ENCOUNTER → 2017-07-22 | Outpatient (CLI) | payer OTHER | LOC: FIMAGING 11:20 | PROVIDERS: ATTEND Physician Assistant | DX: M79.604 Pain in right leg (principal); R09.02 Hypoxemia ==

== ENCOUNTER → 2017-08-03 | Outpatient (CLI) | payer OTHER ==
[~2017-08-03] MED LIST: IOPAMIDOL (ISOVUE 370) 100 ML BTL IV ONE
== END ==
LOC: FIMAGING 10:44
PROVIDERS: ATTEND Physician Assistant
DX: R09.02 Hypoxemia (principal); R79.89 Other specified abnormal findings of blood chemistry; I25.10 Atherosclerotic heart disease of native coronary artery without angina pectoris; J98.11 Atelectasis
CPT/HCPCS: 71275; Q9967

== ENCOUNTER → 2017-08-19 | Outpatient (CLI) | payer OTHER | LOC: BHFA 09:30 | PROVIDERS: ATTEND Internal Medicine Cardiovascular Disease | DX: R00.2 Palpitations (principal); E78.00 Pure hypercholesterolemia, unspecified; R09.02 Hypoxemia; I10 Essential (primary) hypertension | CPT/HCPCS: 78452; 93017; A9500; J2785 ==

== ENCOUNTER 2017-09-09 07:31 | Day surgery (SDC) | payer OTHER ==
[2017-09-09] MEDS ORDERED: DIAZEPAM 5 MG TAB PO ONE (07:32)
[2017-09-09] MEDS ORDERED: methylPREDNISolone SOD SUCC 125 MG/2 ML VIAL IVP ONE (07:32)
[2017-09-09] MEDS ORDERED: NS 1,000 ML IV ONE (07:32)
[2017-09-09] MEDS ORDERED: ASPIRIN EC 325 MG TAB PO ONE (07:32)
[2017-09-09] MEDS ORDERED: FAMOTIDINE 20 MG/NACL 50 ML IV ONE (07:32)
--- NOTE | 2017-09-09 07:59 | CPEKG ---
Heart Rate: 93 RR Interval: 645 P-R Interval: 220 QRSD Interval: 114 QT Interval: 360 QTC Interval: 448 P [place]: 46 QRS [place]: -5 T Wave [place]: 15 EKG Severity - ABNORMAL ECG - EKG Impression: SINUS RHYTHM EKG Impression: FIRST DEGREE AV BLOCK EKG Impression: NONSPECIFIC INTRAVENTRICULAR CONDUCTION DELAY EKG Impression: BORDERLINE R WAVE PROGRESSION, ANTERIOR LEADS EKG Impression: CONSIDER Q WAVE IN INFERIOR LEADS Electronically Signed By: Sheng Nam 09-Sep-2017 09:30:12
[2017-09-09 08:23] LABS: PLATELET COUNT 185 10^3/uL (150-400)
[2017-09-09] MEDS ORDERED: methylPREDNISolone SOD SUCC 125 MG/2 ML VIAL ONE (08:24)
[2017-09-09] MEDS ORDERED: FAMOTIDINE 20 MG/NACL/50 ML BAG IV ONE (08:24)
[2017-09-09 08:33] LABS: INR 0.99 (0.83-1.16); PROTIME(PATIENT) 13.3 SEC (12.0-15.0)
[2017-09-09] MEDS ORDERED: LIDOCAINE 1% 300 MG/30 ML SDV ONE (08:43)
[2017-09-09] MEDS ORDERED: VERAPAMIL 5 MG/2 ML VIAL ONE (08:43)
[2017-09-09] MEDS ORDERED: fentaNYL 100 MCG/2 ML INJ ONE (08:43)
[2017-09-09] MEDS ORDERED: MIDAZOLAM 2 MG/2 ML VIAL ONE (08:43)
[2017-09-09] MEDS ORDERED: HEPARIN 10,000 UNIT/10 ML MDV ONE (08:43)
[2017-09-09] MEDS ORDERED: IOPAMIDOL (ISOVUE-370) 150 ML BTL IV ONE (08:44)
--- NOTE | 2017-09-09 09:05 | PDHPUP ---
History & Physical Update H&P update statement: This history and physical update is based on an assessment of the patient which was completed after admission or registration (within 24 hours), but prior to the surgery/procedure. H&P update: H&P reviewed & patient examined, no change in patient's condition since H&P completed
--- NOTE | 2017-09-09 09:05 | PDPROPOC ---
Sedation Plan of Care Sedation Plan of Care: vital signs stable, mental status noted, patient educated of risks, benefits, alternatives, patient can tolerate sedation ASA Classification: ASA 3 Planned drugs: fentanyl, midazolam Mallampati Score: Class 2 Mallampati Reference Image: Patient passed 3-3-2 rule?: Yes
[2017-09-09] MEDS ORDERED: NITROGLYCERIN 1,500 MCG/15 ML VIAL MISC ONE (09:42)
[2017-09-09] MEDS ORDERED: NITROGLYCERIN 0.4 MG BTL SL PRN (10:08)
--- NOTE | 2017-09-09 10:10 | PDDXCAT ---
Diagnostic Cath Note - . Date: 09/09/17 Nurse Coordinator: Meño Indication: Class III or IV angina, which improves to class I/II w medical therapy High-risk criteria on non-invasive testing: stress-induced moderate-size multiple perfusion defects - Procedure Access: left wrist Procedure: left heart catheterization, coronary angiography - Materials Left Heart Cath materials: standard multipack (JL4, JR4, pigtail) - Findings-Left Heart Catheterization LM: 2 separate ostia for the LAD and circumflex LAD: Unobstructed with unique ostium LCX: Unobstructed with unique ostium RCA: Dominant: Anterior takeoff: Unobstructed EDP: 18 mm of mercury LVEF: 60 Wall motion: Normal Complications: None Estimated blood loss: <50ml Closure method: TR Band Assessment: Angiographically normal coronary arteries. Normal LV systolic function with normal filling pressures. Plan: Continue primary prevention. Patient Problems: Problems Problem Status Onset Cervical stenosis of spine Acute Neck pain Acute
[2017-09-09] MEDS ORDERED: MAGNESIUM SULF 2 GM/WATER 50 ML IV ONE (10:32)
== END 2017-09-09 14:05 | disposition home or self-care (01) ==
LOC: FCATH 07:31
PROVIDERS: ATTEND Internal Medicine Interventional Cardiology
DX: R07.9 Chest pain, unspecified (principal); R06.02 Shortness of breath; I44.0 Atrioventricular block, first degree; I25.10 Atherosclerotic heart disease of native coronary artery without angina pectoris; E78.5 Hyperlipidemia, unspecified; I10 Essential (primary) hypertension; G47.33 Obstructive sleep apnea (adult) (pediatric); J45.909 Unspecified asthma, uncomplicated; K21.9 Gastro-esophageal reflux disease without esophagitis; E03.9 Hypothyroidism, unspecified; Z85.3 Personal history of malignant neoplasm of breast; Z96.652 Presence of left artificial knee joint
CPT/HCPCS: 93005; 93458; C1769; J1200; J1644; J2250; J2930; J3010; Q9967

== ENCOUNTER → 2017-09-26 | Outpatient (CLI) | payer OTHER | LOC: FIMAGING 10:48 | PROVIDERS: ATTEND Internal Medicine Hematology & Oncology | DX: Z12.31 Encounter for screening mammogram for malignant neoplasm of breast (principal); Z85.3 Personal history of malignant neoplasm of breast; Z80.3 Family history of malignant neoplasm of breast ==

== ENCOUNTER → 2017-10-19 | Outpatient (CLI) | payer OTHER | LOC: FIMAGING 14:01 | PROVIDERS: ATTEND Internal Medicine Hematology & Oncology | DX: Z13.820 Encounter for screening for osteoporosis (principal); Z78.0 Asymptomatic menopausal state; Z85.850 Personal history of malignant neoplasm of thyroid; Z85.3 Personal history of malignant neoplasm of breast ==

== ENCOUNTER 2017-12-21 06:39 | Inpatient (IN) | payer OTHER ==
[~2017-12-21 06:39] MED LIST changes: -IOPAMIDOL (ISOVUE 370) 100 ML BTL IV ONE; +VANCOMYCIN 1.5 GM in NS 250 ML IV ONE
[2017-12-21] MEDS ORDERED: ACETAMINOPHEN 500 MG TAB PO ONE (07:10)
[2017-12-21] MEDS ORDERED: LIDOCAINE 1% 2 ML INJ ID PRN (07:11)
[2017-12-21] MEDS ORDERED: LR 1,000 ML IV ONE (07:11)
[2017-12-21] MEDS ORDERED: CHLORHEXIDINE GLUC HIBICLENS 118 ML BTL TP ONE (07:43)
[2017-12-21] MEDS ORDERED: SURGIFLO MATRIX KIT WITH THROMBIN 8ml TP ONE ×3 (07:43→13:06)
[2017-12-21] MEDS ORDERED: BUPIVACAINE 0.25% 30 ML SDV ONE (07:43)
[2017-12-21] MEDS ORDERED: THROMBIN (BOVINE) 5,000 UNIT VIAL TP ONE (07:43)
[2017-12-21] MEDS ORDERED: BACITRACIN 50,000 UNITS/10 ML SYR IRR ONE (07:44)
--- NOTE | 2017-12-21 07:52 | PDANEPAE ---
ANE History of Present Illness C3-6 ACDF ANE Past Medical History - Cardiovascular History Hx Hypertension: Yes Hx Arrhythmias: Yes Hx Chest Pain: No Hx Coronary Artery / Peripheral Vascular Disease: Yes Hx CHF / Valvular Disease: No Hx Palpitations: No Cardiovascular History Comment: LEFT VENTRICULAR HYPERTROPHY. HYPERCHOLESTEROLEMIA. CARDIAC ABLATIONS X2 2008 AND 2009. RUNS LOW PULSE RATE NOCTURNALLY - Pulmonary History Hx COPD: No Hx Asthma/Reactive Airway Disease: Yes Hx Recent Upper Respiratory Infection: No Hx Oxygen in Use at Home: Yes O2 in Use at Home (L/minute): O2 W/CPAP Hx Sleep Apnea: Yes Sleep Apnea Screening Result - Last Documented: Positive Pulmonary History Comment: ASTHMA. GUANAKO POSITIVE USES CPAP - Neurologic History Hx Cerebrovascular Accident: No Hx Seizures: No Hx Dementia: No Neurologic History Comment: HX OF FUSION - Endocrine History Hx Diabetes: No Obesity: yes, severe Endocrine History Comment: TOTAL THYROIDECTOMY (L) 2011 AND PARATHYROIDECTOMY 2012. MAGNESIUM AND CALCIUM RUNS VERY LOW. THYROID CA - Renal History Hx Renal Disorders: No Renal History Comment: BORDERLINE CKD DUE TO MEDS - Liver History Hx Hepatic Disorders: No - Neurological & Psychiatric Hx Hx Neurological and Psychiatric Disorders: No - Cancer History Hx Cancer: Yes Cancer History Comment: THYROID CA WITH RADIATION. SQUAMOUS AND BASAL CELL. BREAST CANCER - LUMPECTOMIES L. RADIATION - Congenital Disorder History Hx Congenital Disorders: No - GI History Hx Gastrointestinal Disorders: Yes Gastrointestinal History Comment: REFLUX - Other Health History Other Health History: VOCAL CORDS ARE DAMAGED FROM SURGERY SPEAKS VERY SOFTLY - Chronic Pain History Chronic Pain: Yes (SHOULDER & NECK) - Surgical History Prior Surgeries: LT BREAST EXC MASS 10/07/15. CARDIAC CATHS 1997,2001,2008 AND 2009. TOTAL HYSTERECTOMY 07/2015. CARDIAC ABLATION 2008 AND 2009. WEDGE REPAIR OF VOCAL CORD. ACHILLES TENDON REPAIR 1996. BACK SURGERY SPINAL FUSION L3-4 1999. BONE SPUR REMOVAL 03/13/06. LEFT BREAST BX 01/2002. RIGHT BREAST BX 1984. ENDOMETRIAL BX. LEFT TKA 2006. RIGHT TKA 2007. ROBERTO -THYROIDECTOMY X2. PARA THYROIDECTOMY. ANE Review of Systems Review of systems is: negative Review of Systems: - Exercise capacity METS (RN): 4 METS ANE Patient History - Allergies Allergies/Adverse Reactions: amlodipine [From Norvasc] Allergy (Severe, Verified 09/09/17 08:34) Wheezing amlodipine besylate [From Norvasc] Allergy (Severe, Verified 09/09/17 08:27) Hypotension cefazolin sodium [From Ancef] Allergy (Severe, Verified 12/15/17 11:03) anaphalaxis cephalexin monohydrate [From Keflex] Allergy (Severe, Verified 12/15/17 11:03) Anaphylaxis doxycycline Allergy (Severe, Verified 12/15/17 11:03) Rash - takes with Benadryl hydrochlorothiazide Allergy (Severe, Verified 09/09/17 08:30) Rash hydromorphone [From Dilaudid] Allergy (Severe, Verified 09/09/17 08:33) Other-Enter Comments indomethacin Allergy (Severe, Verified 12/15/17 11:03) Rash,hives Iodinated Contrast- Oral and IV Dye [IV Dye, Iodine Containing] Allergy (Severe , Verified 12/15/17 11:03) SWELLING, hives iodine [Iodine] Allergy (Severe, Verified 09/09/17 08:27) Rash labetalol Allergy (Severe, Verified 09/09/17 08:29) Hypotension levofloxacin [From Levaquin] Allergy (Severe, Verified 09/09/17 08:28) Other-Enter Comments lisinopril Allergy (Severe, Verified 09/09/17 08:27) Hypotension losartan [From Cozaar] Allergy (Severe, Verified 09/09/17 08:30) Hypotension nitrofurantoin [From Macrodantin] Allergy (Severe, Verified 09/09/17 08:27) Hives Penicillins Allergy (Severe, Verified 09/09/17 08:27) Anaphylaxis Sulfa (Sulfonamide Antibiotics) Allergy (Severe, Verified 09/09/17 08:27) Anaphylaxis tramadol Allergy (Severe, Verified 09/09/17 08:32) Other-Enter Comments verapamil Allergy (Severe, Verified 09/09/17 08:34) Rash Shellfish *RETIRED-05/22/12 [Shellfish] Allergy (Intermediate, Verified 08:28) povidone-iodine [From Betadine] Allergy (Verified 12/15/17 11:03) weepy blisters soap [From Betadine] Allergy (Verified 12/15/17 11:03) weepy blisters - Home Medications Home Medications: Allopurinol [Allopurinol 300 MG (RX)] 150 mg PO BID 07/16/14 [Last Taken ] Aspirin EC [Aspirin EC 325 mg (*)] 325 mg PO DAILY 07/16/14 [Last Taken 12/14/17 ] Atorvastatin Calcium [Lipitor 20 mg (*)] 20 mg PO HS 07/16/14 [Last Taken ] Calcium Carbonate [Tums 500MG (*)] 500 mg PO TID 07/16/14 [Last Taken 12/20/17] Cholecalciferol (Vitamin D3) [Vitamin D3] 4,000 unit PO DAILY@07/16/14 [Last Taken 12/21/17] Levalbuterol Inhaler [Xopenex Hfa Inhaler (*)] 1 - 2 puffs IH BID PRN 07/16/14 [ Last Taken 12/21/17] Magnesium Sulf 4 gm/Water [Magnesium Sulf 4 gm (Premix)] 4 gm IV Q30D 07/16/14 [Last Taken 12/20/17] Ranitidine HCl 150 mg PO BID@,07/16/14 [Last Taken 12/21/17] Valsartan [Diovan (*)] 80 mg PO BID@,07/16/14 [Last Taken 12/20/17] Amiloride 10 mg PO BID@,07/01/17 [Last Taken 12/20/17] Anastrozole [Arimidex 1 mg (*)] 1 mg PO DAILY@07/01/17 [Last Taken 12/20/17] Calcitriol [Calcitriol (*)] 0.25 mg PO DAILY10 07/01/17 [Last Taken 12/20/17] Magnesium Oxide [Magnesium Oxide 400 mg (*)] 1,200 mg PO TID@,,07/01/17 [ Last Taken 12/21/17] Felodipine [Plendil 5 MG (*)] 5 mg PO DAILY 09/07/17 [Last Taken 12/21/17] Gabapentin [Neurontin 100 MG (*)] 200 mg PO HS 09/07/17 [Last Taken 12/20/17] Levothyroxine [Synthroid 137 mcg (*)] 137 mcg PO DAILY06 09/07/17 [Last Taken ] Magnesium Chloride [Slow-Mag] 1 each PO DAILY@17 09/07/17 [Last Taken 12/21/17] Magnesium Chloride [Slow-Mag] 2 each PO DAILY 09/07/17 [Last Taken 12/21/17] Methocarbamol [Robaxin 500 mg (*)] 500 mg PO TID PRN 09/07/17 [Last Taken ] clonIDINE [Catapres-Tts (*)] 0.3 mg TD TU@21 09/07/17 [Last Taken 12/21/17] Fluticasone/Salmeter 250/50Mcg [Advair 250/50 (*)] 1 puffs IH BID 12/13/17 [ Last Taken 12/21/17] Spironolactone [Aldactone 25 MG (*)] 25 mg PO DAILY@14 12/13/17 [Last Taken 06/29] - Smoking Hx Smoking Status: Never smoked - Family Anes Hx Family Hx Anesthesia Complications: NONE ANE Labs/Vital Signs - Labs Result Diagrams: 12/21/17 07:30 - Vital Signs Height: 157.48 cm Weight: 127.006 kg ANE Physical Exam - Airway Neck exam: decreased ROM Mallampati Score: Class 2 Mouth exam: normal dental/mouth exam - Pulmonary Pulmonary: no respiratory distress - Cardiovascular Cardiovascular: regular rate and rhythym - ASA Status ASA Status: IV ANE Anesthesia Plan Anesthesia Plan: general endotracheal anesthesia Lines/Monitors: arterial line, additional IV Specialized Airway: video laryngoscope
[2017-12-21] MEDS ORDERED: fentaNYL 100 MCG/2 ML INJ ONE ×2 (08:13→15:14)
[2017-12-21] MEDS ORDERED: PROPOFOL/EMULSION 500 MG/50 ML BOTTLE IV ONE (08:14)
[2017-12-21] MEDS ORDERED: REMIFENTANIL HCL 1 MG VIAL ONE ×3 (08:14→12:43)
[2017-12-21] MEDS ORDERED: PROPOFOL 200 MG/20 ML VIAL ONE ×6 (08:14→12:44)
[2017-12-21] MEDS ORDERED: LIDOCAINE 2% 5 ML SDV ONE (08:19)
[2017-12-21] MEDS ORDERED: PHENYLEPHRINE 10 MG/ML SDV ONE (08:34)
[2017-12-21] MEDS ORDERED: ONDANSETRON 4 MG/2 ML VIAL ONE ×2 (08:40→14:52)
[2017-12-21] MEDS ORDERED: DEXAMETHASONE 4 MG/ML VIAL ONE (08:40)
[2017-12-21] MEDS ORDERED: PHENYLEPHRINE HCL 100 MCG/ML SYR ONE (09:54)
[2017-12-21] MEDS ORDERED: MAGNESIUM SULF 1 GM/DEXTROSE 100 ML IV ONE (10:00)
[2017-12-21] MEDS ORDERED: CALCIUM CHLORIDE 1 GM/10 ML INJ ONE (12:23)
[2017-12-21] MEDS ORDERED: HYDROCODONE/APAP 5/325 TAB PO PRN (13:13)
[2017-12-21] MEDS ORDERED: PHENYLEPHRINE HCL 100 MCG/ML SYR IVP PRN (13:13)
[2017-12-21] MEDS ORDERED: ONDANSETRON 4 MG/2 ML VIAL IVP PRN ×2 (13:13→14:31)
[2017-12-21] MEDS ORDERED: epHEDrine SULFATE 10 MG/ML SYR IVP PRN (13:13)
[2017-12-21] MEDS ORDERED: PROMETHAZINE HCL 25 MG/ML INJ IVP PRN (13:13)
[2017-12-21] MEDS ORDERED: NALOXONE HCL 0.4 MG/ML INJ IVP PRN ×2 (13:13)
[2017-12-21] MEDS ORDERED: ALBUTEROL 3 ML DEYVIAL IH PRN (13:13)
[2017-12-21] MEDS ORDERED: ACETAMINOPHEN 500 MG TAB PO PRN (13:13)
[2017-12-21] MEDS ORDERED: LR 500 ML IV PRN (13:13)
[2017-12-21] MEDS ORDERED: oxyCODONE IR 5 MG TAB PO PRN (13:13)
--- NOTE | 2017-12-21 13:18 | POSTANESTH ---
Post Anesthetic Evaluation Cardiovascular Status: Normal, Stable Respiratory Status: Normal, Stable Level of Consciousness/Mental Status: Can Participate in Eval Pain Control: Adequate, Prn Tx Ordered Nausea/Vomiting Control: Adequate, Prn Tx Ordered Complications Possibly Related to Anesthesia: None Noted
[2017-12-21] MEDS ORDERED: diphenhydrAMINE 25 MG CAP PO PRN (14:31)
[2017-12-21] MEDS ORDERED: MAGNESIUM HYDROXIDE 30 ML UDCUP PO PRN (14:31)
[2017-12-21] MEDS ORDERED: LACTULOSE 20 GM/30 ML UDCUP PO PRN (14:31)
[2017-12-21] MEDS ORDERED: POLYETHYLENE GLYCOL 3350 17 GM PKT PO PRN (14:31)
[2017-12-21] MEDS ORDERED: BISACODYL 10 MG SUPP PR PRN (14:31)
[2017-12-21] MEDS ORDERED: DIAZEPAM 5 MG TAB PO PRN (14:35)
[2017-12-21] MEDS ORDERED: NS W/ 20 KCl/L 1,000 ML IV SCH (14:45)
[2017-12-21] MEDS: DIAZEPAM 5 MG/ML 1 ML SYR IVP PRN ×3 (14:54→15:57)
--- NOTE | 2017-12-21 14:58 | POSTOPPROG ---
Post Op Note Date of Operation: 12/21/17 Surgeon: Denisha Moreno Medical Record Clerk: Rebecca Allison PA-C Anesthesia: GET(General Endotracheal) Pre-op Diagnosis: Cervical stenosis Post-op Diagnosis: Cervical stenosis Procedure: acdf c3-6 Inf/Abcess present in the surg proc area at time of surgery?: No Depth: Deep Incisional (Fascial) EBL: 50-100 Drains: Wilson Abraham Plan Plan: 67 yo female s/p ACDF C3-6 with partial corpectomy at C5 - neuro checks - pain control - VERONICA drain x 1 - hard collar - PT/OT/DIRECTOR OF OPTIMIZATION - postop x-rays in am - medicine consulted - SCDs/TEDs, Lovenox to start POD#3 Exam Patient seen in recovery. Awake. Alert Following commands Strength full Incision with dressing c/d/i
[2017-12-21] MEDS: fentaNYL 100 MCG/2 ML INJ IVP PRN ×2 (15:15→15:48)
[2017-12-21] MEDS ORDERED: MAGNESIUM OXIDE 400 MG TAB PO SCH (16:00)
--- NOTE | 2017-12-21 16:29 | PDMN ---
Medical Necessity Medical necessity: [facility] IP only surgery; cpt 22541 C3-C6 ACDF w/partial corpectomy
[2017-12-21] MEDS ORDERED: ANASTROZOLE 1 MG TAB PO SCH (17:00)
[2017-12-21] MEDS ORDERED: MAGNESIUM CHLORIDE PO SCH (17:00)
[2017-12-21] MEDS: CALCIUM CARBONATE 500 MG CHEWABLE TAB PO SCH ×2 (17:23→20:58)
[2017-12-21] MEDS: METHOCARBAMOL 500 MG TAB PO PRN (17:27)
--- NOTE | 2017-12-21 18:01 | GOP ---
[f rep st] OPERATIVE REPORT DATE OF OPERATION: 12/21/2017 SURGEON: Denisha Moreno DO ENERGY CONSERVATION SPECIALIST: AASHISH Palmer. PREOPERATIVE DIAGNOSIS: 1. Cervical spondylosis. 2. Cervical myelopathy. 3. Cervical stenosis. 4. Morbid obesity, chronic renal disease, obstructive sleep apnea, hypomagnesemia, hypothyroid, hypo parathyroid, coronary artery disease. POSTOPERATIVE DIAGNOSIS: 1. Cervical spondylosis. 2. Cervical myelopathy. 3. Cervical stenosis. 4. Morbid obesity, chronic renal disease, obstructive sleep apnea, hypomagnesemia, hypothyroid, hypo parathyroid, coronary artery disease. PROCEDURE PERFORMED: C3-4, C4-5, C5-6 anterior cervical diskectomy, C5 partial corpectomy, C3-4, C4- 5, C5-6 interbody graft with Medtronic anatomic Peek cage 8 mm at C3-4, 10 mm at C4-5, 7 mm at C5-6, placement of anterior plating with Medtronic Zevo plate C4-C6, 57 mm plate autograft to allograft, mi croscope neuromonitoring. FINDINGS: SPECIMENS: None. ESTIMATED BLOOD LOSS: 75 mL. INDICATIONS: This is a 67-year-old female with cervical spondylitic myelopathy, who has elected to m ove forward with anterior cervical diskectomy and fusion. She has a baseline right-sided laryngeal n erve injury from previous parathyroidectomy, so we elected to go in on the right side. DESCRIPTION OF PROCEDURE: She was identified and consented. Sites were marked. Brought to the oper ating room, anesthetized under general trachea anesthesia. Pre position baselines were performed, luz cooney was then positioned in the interscapular roll and her head in a neutral position on the Zavala wi th retraction on her arms. Given her large body habitus it was very difficult to see onto the top of the C4 vertebral body despite multiple x-ray manipulations, we were able to see some of the lower an atomy. We marked the incision. She was prepped and draped in the usual sterile fashion. Incision w as anesthetized with 0.5% Marcaine with epinephrine. Incision was made with a 10 blade. Hemostasis was obtained with bipolar cautery. Using Debakey's, we then dissected through the platysma in a hori zontal fashion and then moving along the scar tissue aspect of the medial aspect of the SCM using the handheld Cloward, retracted the trachea and esophagus medially. The carotid was palpated laterally and retracted laterally. Coming down on to the anterior aspect of the spine she had copious redundan t tissue at this level. We cleared the prevertebral fascia. Placed a bayoneted spinal needle, took an x-ray, we were at the C4-5 level. This was marked and then we dissected up to the C3-4 level with Kittner's and again took an x-ray with a bayoneted spinal needle, verifying we were at the C3-4 leve l. We then dissected the longus coli laterally and measured and placed a Shadow-Line retractor. We then placed 14 mm Shenandoah pins, took an x-ray, we were in appropriate position. Placed the patient un anna distraction, brought in the microscope using a high-speed drill, removed the disk and cartilagino us endplate at C3-C4, coming all the way down to the posterior longitudinal ligament, which was opene d with micro upgoing curette and then extended with the 1 Kerrison and then removal of the posterior longitudinal ligament and posterior osteophytes were performed, with a 2 Kerrison along the superior and inferior endplate, and out bilateral lateral foramina until generous foraminotomies were performe d and she was well decompressed. We then harvested autograft from this level, measured an 8 mm cage under x-ray, packed it with the patient's own bone, and some Progenix, tamped into place. Took an x- ray, verified it was in the appropriate position. Neuro monitoring was stable. We then removed the Shenandoah pin from the C3, plugged the hole with a Gelfoam bullet, moved the Shenandoah retractors down to C 4-5 and replaced the Shenandoah pin, took an x-ray to the best extent with multiple manipulations we were able to tell the Shenandoah pin was in the appropriate position. Placed her under distraction, used a h igh-speed drill to remove the disk and cartilaginous endplate from C4-5, coming out of the posterior longitudinal ligament, opening this with micro upgoing curette, using the 1 Kerrison to extend this a nd then using the 2 Kerrison to remove the superior and inferior endplate out bilateral lateral flavio dwayne. We did require a partial corpectomy at C5 at this level because the central osteophyte was infe riorly located and in order to fully decompressed we had to undercut this. We then harvested autogra ft, measured a 10 mm cage, under x-ray packed with autograft allograft and tamped it into place. Too k an x-ray, it was to the best of our ability visualization in good position. Neuro monitoring was s table. We then removed the Shenandoah pin from C4 and plugged the hole with a Gelfoam bullet. Then diss ecting down with the Kittner's and replacing the retractors and a Shenandoah pin at C6, we then took an x -ray again to the best of our ability. The Shenandoah pin was in the appropriate position. There was a solid osteophyte across the disk space at this level, so we located this disk space with a high-speed drill, and then removed the disk and cartilaginous endplates superiorly and inferiorly, coming down on the posterior longitudinal ligament, opening it with micro upgoing curette and then extended this with 1 and 2 Kerrison until complete foraminotomies and superior and inferior osteophytes were remove d. We then harvested some autograph, measured a 7 mm graft at this level and the patient having harv ested autograft, packed it with the patient's own bone, and some allograft, tamped it into place and under the best of our ability to visualize it was in good position. Neuro monitoring was stable. We then measured a 57 mm plate placed it, brought to the microscope, brought in handheld Cloward's, bro ught in the 57 mm plate. Placed the screws on the right side, 15 mm screws, in a medial and somewhat more direct angulation, as x-ray was very difficult, we did not want to violate the inferior endplat e at C6-7, so we placed all of the screws. It appeared to be in good position. The plate was slight ly canted, secondary to inability to have the plate laid completely flat and straight, however, this should not affect the fusion rate. The screws appear to be in good position. Again it was exceeding ly difficult to see the C5 and C6 screws, although we do believe that they are not violating the endp lates and are in good position. We then moved to the other side. Replaced all the screws at all lev els there, and took an x-ray again to the best of our ability with multiple neck manipulations of the C-arm, we were able to see as well as we could see, we believe the plate is in good position. Neuro monitoring remained stable. An AP shows a slight cant to the plate but otherwise in good position. We then locked the plate down with the locking mechanism, copiously irrigated with over a liter of g entamicin infused saline. Meticulous hemostasis was obtained and once hemostasis had been obtained, the drain was trocared out and placed in the prevertebral space. The retractors were removed, inspec ting the lay on the way out and closed the platysma with 2-0 Vicryl pop-offs, subcutaneous layer wi th 3-0 Vicryl pop-offs. The skin was closed with 4-0 running Monocryl and Steri-Strips. The drain w as sutured with a 2-0 Vicryl pop-off placed to bulb suction. Neuro monitor remained stable. Patient tolerated procedure well. There were no complications. FLUIDS: 1500 mL crystalloid. URINE: 300 mL output. DRAINS: Drains 1 VERONICA in the prevertebral space to bulb suction. COMPLICATIONS: None. /[id number]/MODL
[2017-12-21] MEDS ORDERED: PROTOCOL CALCIUM 1 DOSE IV PRN (18:22)
[2017-12-21] MEDS ORDERED: PROTOCOL MAGNESIUM 1 DOSE IV PRN (18:22)
[2017-12-21] MEDS ORDERED: MAGNESIUM SULF 2 GM/WATER 50 ML IV PRN (18:30)
[2017-12-21] MEDS ORDERED: CALCIUM GLUCONATE 1 GM in NS 50 ML IV PRN (18:31)
[2017-12-21] MEDS: oxyCODONE IR 5 MG TAB PO PRN (18:38)
[2017-12-21] MEDS ORDERED: VANCOMYCIN 1.25 GM in NS 250 ML IV ONE (20:00)
[2017-12-21] MEDS: FLUTICASONE/SALMETER 250/50MCG DISKUS IH SCH (20:33)
[2017-12-21] MEDS: LEVALBUTEROL INHALER 200 PUFFS/15 GM MDI IH PRN (20:37)
--- NOTE | 2017-12-21 20:56 | NEUSURGPN ---
Date of Surgery: 12/21/17 Post Op Day: 0 Assessment/Plan: Continue with pain control continue collar continue drain ambulate with assistance slowly advance diet as tolerated to soft Subjective: Doing very well Hand numbness improved Posterior cervical pain tolerable tolerating liquids well Overall very pleased Objective: AandOx3 PERRL EOMI. MAEWx 4 5/4 +LT Collar in place dressing c/d/i Neuro Check Frequency: Q4 Urinary Catheter in Place: No Catheter Insertion Date: 12/21/17 - Physician Patient Seen by : Tiffanie Neurosurgery Physical Exam - Vitals, I&O, Labs I and O 12/20/17 12/21/17 12/22/17 05:59 05:59 05:59 Intake Total 2350 Output Total 1045 Balance 1305 Weight 127.006 kg Intake: Oral (ml) 350 IV Intake (ml) 2000 Output: Urine (ml) 925 Catheter 925 Estimated Blood Loss (ml) 75 VERONICA Drain Output (ml) 45 Anterior Neck Wilson 45 Abraham Other: Intake Quantity Yes Sufficient Vital Signs Temp Pulse Resp BP Pulse Ox 36.7 C 97 15 151/80 H 97 12/21/17 19:42 12/21/17 19:42 12/21/17 19:42 12/21/17 19:42 12/21/17 19:42 Laboratory Results 12/21/17 13:19 ICD10 Worksheet Patient Problems: Problems Problem Status Onset Cervical stenosis of spine Acute Neck pain Acute
[2017-12-21] MEDS: SENNOSIDES/DOCUSATE SODIUM TAB PO SCH (20:58)
[2017-12-21] MEDS: ALLOPURINOL 300 MG TAB PO SCH (20:58)
[2017-12-21] MEDS: ONDANSETRON DISINTEGRATING 4 MG TAB PO PRN (21:00)
[2017-12-21] MEDS ORDERED: GABAPENTIN 100 MG CAP PO SCH (21:00)
[2017-12-21] MEDS ORDERED: ATORVASTATIN CALCIUM 20 MG TAB PO SCH (21:00)
[2017-12-21] MEDS: MAGNESIUM OXIDE 400 MG TAB PO SCH (21:05)
--- NOTE | 2017-12-21 21:41 | GCON ---
[f rep st] CONSULTATION DATE OF CONSULTATION: 12/21/2017 REASON FOR CONSULTATION: I was asked by Dr. Moreno to see the patient in regard to her medical prob lems including her electrolyte abnormalities. HISTORY OF PRESENT ILLNESS: A 67-year-old female who underwent a 3-level ACDF today by Dr. Moreno. Postoperatively she is complaining of some neck pain, significantly reduced numbness in her bilatera l hands, no chest pain, no shortness of breath. The operation was relatively unremarkable. She has a complicated history of parathyroid problems. Initially she was hyperparathyroid with adeno mas which were resected. This has left her to be hypoparathyroid post resection. She takes vitamin D, calcium, as well as magnesium. She tells me she has had multiple episodes of tetany in the settin g of hypomagnesemia. I clarified that this is not calcium related, and she is she is quite clear. S he has a prodrome of left facial twitching, as well as some pain in her calf as well as biceps. If s he gets magnesium, these immediately resolve. She has had problems perioperatively with this in the past. She also has a history of breast cancer. She is on Arimidex. PAST MEDICAL/SURGICAL HISTORY: 1. Morbid obesity. 2. GUANAKO. 3. Hypothyroid. 4. Hypomagnesemia. 5. Graves disease. 6. Hypoparathyroid. 7. GERD. 8. Chronic kidney disease. 9. Gout. 10. Hyperlipidemia. 11. Breast cancer status post lumpectomy with lymphedema. 12. Thyroid cancer, papillary. 13. Ventricular arrhythmia status post ablation. 14. Hysterectomy. 15. D and C. 16. TKA. 17. Multiple orthopedic surgeries. MEDICATIONS: Please see medication reconciliation. ALLERGIES: She has multiple allergies to: Amlodipine, cefazolin, Keflex, doxycycline, hydrochloroth iazide, hydromorphone, indomethacin, iodinated contrast, labetalol, levofloxacin, lisinopril, losarta n, nitrofurantoin, penicillin, sulfa, tramadol, verapamil, shellfish, Betadine. FAMILY HISTORY: Mother had anomalous coronary artery. SOCIAL HISTORY: She is accompanied by her . REVIEW OF SYSTEMS: A 10-point review of systems is conducted and is negative except per HPI. PHYSICAL EXAM: VITAL SIGNS: Blood pressure 140/70, heart rate 108, respiratory rate 18, saturating 98% on 6 liter oxy mask. Temperature is 36.7. GENERAL: The patient is a very pleasant female, rest ing comfortably. No acute distress. HEENT: Shows her to have a hard collar in place. CARDIOVASCUL AR: Regular rate and rhythm. She has a 2/6 systolic murmur. No volume overload. PULMONARY: From the anterior shows her to be clear bilaterally. She is not in any respiratory distress. ABDOMEN: S oft, nontender, nondistended. SKIN: No rash. : No Ibarra. NEUROLOGIC: Shows her to be alert an d oriented x3. She is moving all extremities. PSYCHIATRIC: Shows a normal mood and affect. LABORATORY DATA: Creatinine 1.1, potassium 4.6, calcium 10.0, magnesium 2.2. DATA: 1. I discussed this with Rebecca Allison. I will consult. 2. I reviewed her chart including her old H and P. 3. I reviewed her operative note by Dr. Moreno. There were no complications noted. She has a VERONICA d rain left. IMPRESSION AND PLAN: 1. Electrolyte abnormalities: She has a history of hyperthyroid status post parathyroid adenoma cur rently hypoparathyroid. She had a history of tetany in the past. She has had perioperative complica tions as well. I have written to have q.6 electrolytes checked. I have placed her on the calcium, m agnesium and electrolyte protocol. I have also written for p.r.n. magnesium sulfate as well as calci um gluconate should she have any symptoms of tetany. Hospital Medicine should be alerted immediately if this is the case. 2. Three level ACDF by Dr. Moreno: Postoperative care per Dr. Moreno. 3. Hypothyroid: Continue her Synthroid. 4. Hypertension: She is currently on amiloride, clonidine, valsartan, Aldactone, felodipine. 5. Breast cancer. Currently on Arimidex. This causes hot flashes. She is on clonidine to help wit h this. 6. Hyperlipidemia on Lipitor. Thank you for involving Hospital Medicine in the care of your patient. We will continue to follow wi th you. /[id number]/MODL
[2017-12-22] MEDS: METHOCARBAMOL 500 MG TAB PO PRN ×2 (00:38→06:33)
[2017-12-22] MEDS: oxyCODONE IR 5 MG TAB PO PRN ×4 (03:09→15:33)
[2017-12-22] MEDS: ONDANSETRON DISINTEGRATING 4 MG TAB PO PRN ×2 (03:17→10:28)
[2017-12-22] MEDS ORDERED: LEVOTHYROXINE 137 MCG TAB PO SCH (06:00)
[2017-12-22] MEDS ORDERED: MAGNESIUM SULF 1 GM/DEXTROSE 100 ML IV ONE (07:08)
[2017-12-22] MEDS ORDERED: CALCIUM GLUCONATE 50 ML IV ONE (07:08)
[2017-12-22] MEDS ORDERED: CALCIUM GLUCONATE 1 GM in D5W 50 ML IV ONE (07:30)
--- NOTE | 2017-12-22 07:57 | NEUSURGPN ---
Assessment/Plan: A: 67 yo female s/p ACDF C3-6 with partial corpectomy at C5 Plan: - pain control - will change robaxin to Q6 hours - VERONICA drain x 1 - 85 cc out, continue for now - hard collar - if collar not fitting well today will have tobacco hanger come to adjust /consider aspen collar - PT/OT/SPORTS NUTRITIONIST - postop x-rays pending - medicine consulted for medical issues. Appreciate assistance in caring for this patient - labs reviewed this am, magnesium ok. - O2- try to wean to room air for daytime, at baseline uses home O2 at night. - SCDs/TEDs, Lovenox to start POD#3 - D/w Dr Moreno - Dispo: possibly home later today pending clinical course - Please call NS with any issues Subjective: Pt resting in bed, c/o posterior neck pain. Swallowing ok. Numbness in hands is improving. Objective: AAOx3 NAD VSS MAEx4 Motor 5/5 BUE/BLE Incision dressed cdi JPx1 C collar on +LT - diminished sensation in long finger fingertips bilaterally. Urinary Catheter in Place: No Catheter Insertion Date: 12/21/17 - Physician Discussed Patient with : Tiffanie Neurosurgery Physical Exam - Vitals, I&O, Labs I and O 12/21/17 12/22/17 12/23/17 05:59 05:59 05:59 Intake Total 4637 Output Total 2085 Balance 2552 Weight 127.006 kg Intake: Oral (ml) 1600 IV Intake (ml) 2000 IV Infused (ml) 1037 NS W/ 20 KCl/L 1,000 ml @ 1037 75 mls/hr IV CONT CHRISTOPHER Rx #:[id number] Output: Urine (ml) 1925 Catheter 1925 Estimated Blood Loss (ml) 75 VERONICA Drain Output (ml) 85 Anterior Neck Wilson 85 Abraham Other: Intake Quantity Yes Sufficient Vital Signs Temp Pulse Resp BP Pulse Ox 36.7 C 96 20 151/80 H 96 12/21/17 19:42 12/21/17 20:36 12/21/17 20:36 12/21/17 19:42 12/21/17 20:36 Laboratory Results 12/22/17 06:00 ICD10 Worksheet Patient Problems: Problems Problem Status Onset Cervical stenosis of spine Acute Neck pain Acute
[2017-12-22] MEDS: ALLOPURINOL 300 MG TAB PO SCH (08:46)
[2017-12-22] MEDS: VALSARTAN 80 MG TAB PO SCH ×2 (08:46→15:23)
[2017-12-22] MEDS: AMILORIDE 5 MG TAB PO SCH ×2 (08:46→13:59)
[2017-12-22] MEDS: FAMOTIDINE 20 MG TAB PO SCH ×2 (08:46→15:23)
[2017-12-22] MEDS: SENNOSIDES/DOCUSATE SODIUM TAB PO SCH (08:47)
[2017-12-22] MEDS: FLUTICASONE/SALMETER 250/50MCG DISKUS IH SCH (08:52)
[2017-12-22] MEDS: LEVALBUTEROL INHALER 200 PUFFS/15 GM MDI IH PRN (08:55)
[2017-12-22] MEDS ORDERED: FELODIPINE 5 MG TAB.ER PO SCH (09:00)
[2017-12-22] MEDS ORDERED: MAGNESIUM CHLORIDE PO SCH (09:00)
[2017-12-22] MEDS ORDERED: CHOLECALCIFEROL VIT D3 2,000 UNITS TAB/CAP PO SCH (10:00)
[2017-12-22] MEDS ORDERED: CALCITRIOL 0.25 MCG CAP PO SCH (10:00)
[2017-12-22] MEDS: CALCIUM CARBONATE 500 MG CHEWABLE TAB PO SCH (10:50)
[2017-12-22] MEDS: MAGNESIUM OXIDE 400 MG TAB PO SCH (10:51)
[2017-12-22] MEDS ORDERED: METHOCARBAMOL 500 MG TAB PO PRN (12:45)
--- NOTE | 2017-12-22 12:56 | ASMTCASEMG ---
Living Arrangements What is your living Answers: With Spouse arrangement? Who do you live with? Type Of Residence What kind of residence do Answers: House you live in? Discharge Plan Comments Coordination Status Comments Notes: Patient is a 67yo female who has significant cord compression at multiple levels in her cervical spine and has elected surgical intervention. PT/OT/TANBARK LABORER have been ordered. Patient tolerated surgery well. PT/OT are recommending home with home care for patient per therapist in rounds. Reports are not in yet. CM will follow. Date Signed: 12/22/2017 12:55 PM Electronically Signed By:Anastasia Woo LCSW
[2017-12-22] MEDS ORDERED: SPIRONOLACTONE 25 MG TAB PO SCH (14:00)
[2017-12-22 14:01] VITALS: BP 103/51
--- NOTE | 2017-12-22 19:08 | HOSPPROG ---
Hospitalist Progress Note Assessment/Plan: Assessment: 67-year-old female presents for cervical fusion, medically consult it for history of symptomatic hypomagnesemia, chronic respiratory failure, hypocalcemia. Plan: 1. Hypocalcemia and hypomagnesium. Reportedly in the setting of previous parathyroidectomy secondary to adenoma, patient reports that her baseline magnesium levels around 1.6 and that she is currently taking a substantial amount of supplemental magnesium and calcium orally -counseled the patient that because she is not currently symptomatic and her magnesium level is between 1.5 and 2, would not recommend additional repletion at this time, and she has received 1 g of IV magnesium this morning, as well as IV calcium, does not require additional supplementation -counseled patient that she should have bowel movement prior to discharge, and she is currently experiencing hyperactive bowel sounds in the setting of increasing her oral magnesium intake, this will most likely produce a bowel movement -she is medically safe for discharge home at this juncture for these issues 2. Chronic hypoxic respiratory failure. Secondary to suspected obesity hypoventilation syndrome, patient has previously been prescribed home supplemental oxygen during the daytime and her choice to only wear it at night is purely elective -suspect she will require ongoing supplemental oxygen at discharge given suspected atelectasis 3. Suspected acute atelectasis. Some inspiratory crackles in the bilateral bases, ongoing oxygen requirements postoperatively, patient most likely has atelectasis, would recommend ongoing supplemental oxygen during the daytime for the next couple days, then patient can begin weaning it off as she increases her home physical activity, and utilize incentive spirometer if desired -counseled the the above 4. Morbid obesity and BMI 51. Increases patient's risk of respiratory morbidity as outlined above 5. Obstructive sleep apnea. Counseled patient to continue her home CPAP device , she is currently working to make it more comfortable Patient is medically safe for discharge home at this time, counseled patient and her regarding this and they are feeling safe for discharge. Subjective: Patient reports no tetany in her hands overnight, paresthesias are improving Objective: Vital Signs Temp Pulse Resp BP Pulse Ox 37.2 C 82 18 103/51 L 92 12/22/17 07:56 12/22/17 14:01 12/22/17 14:01 12/22/17 14:01 12/22/17 14:01 Laboratory Results 12/22/17 12:25 12/21/17 12/22/17 12/23/17 05:59 05:59 05:59 Intake Total 4637 Output Total 0991 625 Balance 8572 -369 - Time Spent With Patient Time Spent with Patient: greater than 35 minutes Time Spent with Patient: Greater than 35 minutes spent on this patients care, greater than 50% of time spent counseling, educating, and coordinating care regarding the above mentioned plan. - Physical Exam Constitutional: no apparent distress, not in pain, obese, No uncomfortable Cardiovascular: regular rate and rhythym, no murmur, rub, or gallop, No edema Respiratory: no respiratory distress, no rales or rhonchi, clear to auscultation Gastrointestinal: soft, non-tender abdomen, no palpable masses, No normoactive bowel sounds (Hyperactive bowel sounds) Neurologic: AAOx3, No sensation intact bilaterally (Subjective paresthesias in the bilateral 3rd digits), No weakness (Motor strength 5/5 bilateral upper and lower extremities) Psychiatric: interacting appropriately, not anxious, not encephalopathic, thought process linear ICD10 Worksheet Patient Problems: Problems Problem Status Onset Cervical stenosis of spine Acute Neck pain Acute
[2017-12-24] MEDS ORDERED: ENOXAPARIN 40 MG/0.4 ML SYR SC SCH (09:00)
== END 2017-12-22 15:40 | disposition home or self-care (01) | DRG 472 ==
LOC: F3N 06:39 → F2N 08:51
PROVIDERS: ADMIT Neurological Surgery; ATTEND Neurological Surgery
DX: M48.02 Spinal stenosis, cervical region (principal); M47.12 Other spondylosis with myelopathy, cervical region; E66.01 Morbid (severe) obesity due to excess calories; I12.9 Hypertensive chronic kidney disease with stage 1 through stage 4 chronic kidney disease, or unspecified chronic kidney disease; N18.9 Chronic kidney disease, unspecified; G47.33 Obstructive sleep apnea (adult) (pediatric); E03.9 Hypothyroidism, unspecified; I25.10 Atherosclerotic heart disease of native coronary artery without angina pectoris; E20.9 Hypoparathyroidism, unspecified
CPT/HCPCS: 92610-GN; 97161-GP; 97166-GO; 97535-GO; C1713; G8978-GP-CK; G8979-GP-CJ; G8987-GO-CJ; G8988-GO-CI; G8996-GN-CI; G8997-GN-CI; J0171; J0610; J1100; J2270; J2370; J2405; J2704; J3010; J3370; J3475

== ENCOUNTER 2017-12-23 16:53 | Inpatient (IN) | payer OTHER ==
[2017-12-23] MEDS ORDERED: NALOXONE HCL 0.4 MG/ML INJ IVP ONE (17:19)
--- NOTE | 2017-12-23 17:25 | EDPHY ---
H & P Stated Complaint: Hypoxia - Personal History Current Tetanus Diphtheria and Acellular Pertussis (TDAP): Unsure Tetanus Vaccine Date: 2002 - Medical/Surgical History Hx Asthma: Yes Hx Chronic Respiratory Disease: No Hx Diabetes: No Hx Cardiac Disease: Yes Hx Renal Disease: Yes Hx Cirrhosis: No Hx Alcoholism: No Hx HIV/AIDS: No Hx Splenectomy or Spleen Trauma: No Other PMH: CKD,ASTHMA, GERD, GRAVES, HTN, SLEEP APNEA, GOUT, ARRTHYMNIA, THYROID CA, BREAST CA, BACK SURG, NEG CARDIAC CATH X3, ABLATION X2, R KNEE SURG , L KNEE SURG, HYST/OOP, lLt mastectomy, LOW MAG, - Social History Smoking Status: Never smoked Time Seen by Provider: 12/23/17 17:11 HPI/ROS: CHIEF COMPLAINT: Unarousable, episode of apnea HISTORY OF PRESENT ILLNESS: 67-year-old female postop day 2 post [address] Denisha Moreno, medical history significant for obstructive sleep apnea, chronic hypoxemic respiratory failure, chronic renal disease, discharged Hospital last evening presents via ambulance after her noticed that she was difficult to arouse this afternoon, was noted to have frothing at her mouth.. Upon EMS arrival she was unarousable, nasal trumpet placed, pulse oxygenation 12% on room air. Given 0.5 mg of Narcan with slow return of spontaneous respirations. She is general amnestic to events. Is unaware why EMS was called. She does remember EMS standing over her. She is complaining of neck pain she has similar to the pain she was discharged from hospital with. Last dose of opiate was at 9:00 a.m. Today. also describes an episode of emesis at 2:00 a.m.. Patient does recall this. Denies aspirating emesis. She denies: Chest pain, dyspnea, headache, trauma or fall. REVIEW OF SYSTEMS: A ten point review of systems was performed and is negative with the exception of the items mentioned in the HPI PAST MEDICAL & SURGICAL HISTORY: Postoperative day [address] post [address] Denisha Moreno, morbid obesity, chronic renal disease, obstructive sleep apnea, hypothyroid, hypo parathyroid, coronary artery disease, breast cancer SOCIAL HISTORY: Nonsmoker PHYSICAL EXAM (Prior to examination, patient consented to physical exam, hands were washed and my usual and customary physical exam procedures followed) 1) GENERAL: obese, Somnolent. Appears to be in no acute distress. 2) HEAD: Normocephalic, atraumatic 3) HEENT: Pupils equal, round, reactive to light bilaterally. Sclera anicteric. Nasopharynx, oropharynx, clear, no lesions. Ears bilaterally with normal tympanic membranes. 4) NECK: Cervical collar in place. 5) LUNGS: Some inspiratory crackles in the bilateral bases. Currently on supplemental oxygen. 6) HEART: Regular rate and rhythm, no murmur, no heave, no gallop. 7) ABDOMEN: No guarding, no rebound, no focal tenderness, negative McBurney's, negative Orellana's, negative Rovsing's, negative peritoneal sign, 8) MUSCULOSKELETAL: Moving all extremities, no focal areas of tenderness, no obvious trauma. No peripheral edema or discoloration. 9) BACK: No CVA tenderness, no midline vertebral tenderness, no fluctuance, no step-off, no obvious trauma, no visual or palpable abnormality. 10) SKIN: No rash, no petechiae. 11) Psychiatric: Patient is oriented X 3, there is no agitation. DIFFERENTIAL DIAGNOSIS: In no particular include but limited to accidental opiate overdose, pulmonary embolus, pneumothorax (Marciano Mahmood Umu) Constitutional: Initial Vital Signs Temperature (C) 36.8 C 12/23/17 17:00 Heart Rate 113 H 12/23/17 17:00 Respiratory Rate 18 12/23/17 17:00 Blood Pressure 108/62 12/23/17 17:00 O2 Sat (%) 91 L 12/23/17 17:00 O2 Delivery Mode Nasal Cannula O2 (L/minute) 4 Allergies/Adverse Reactions: amlodipine [From Norvasc] Allergy (Severe, Verified 09/09/17 08:34) Wheezing amlodipine besylate [From Norvasc] Allergy (Severe, Verified 09/09/17 08:27) Hypotension cefazolin sodium [From Ancef] Allergy (Severe, Verified 12/15/17 11:03) anaphalaxis cephalexin monohydrate [From Keflex] Allergy (Severe, Verified 12/15/17 11:03) Anaphylaxis doxycycline Allergy (Severe, Verified 12/15/17 11:03) Rash - takes with Benadryl hydrochlorothiazide Allergy (Severe, Verified 09/09/17 08:30) Rash hydromorphone [From Dilaudid] Allergy (Severe, Verified 09/09/17 08:33) Other-Enter Comments indomethacin Allergy (Severe, Verified 12/15/17 11:03) Rash,hives Iodinated Contrast- Oral and IV Dye [IV Dye, Iodine Containing] Allergy (Severe , Verified 12/15/17 11:03) SWELLING, hives iodine [Iodine] Allergy (Severe, Verified 09/09/17 08:27) Rash labetalol Allergy (Severe, Verified 09/09/17 08:29) Hypotension levofloxacin [From Levaquin] Allergy (Severe, Verified 09/09/17 08:28) Other-Enter Comments lisinopril Allergy (Severe, Verified 09/09/17 08:27) Hypotension losartan [From Cozaar] Allergy (Severe, Verified 09/09/17 08:30) Hypotension nitrofurantoin [From Macrodantin] Allergy (Severe, Verified 09/09/17 08:27) Hives Penicillins Allergy (Severe, Verified 09/09/17 08:27) Anaphylaxis Sulfa (Sulfonamide Antibiotics) Allergy (Severe, Verified 09/09/17 08:27) Anaphylaxis tramadol Allergy (Severe, Verified 09/09/17 08:32) Other-Enter Comments verapamil Allergy (Severe, Verified 09/09/17 08:34) Rash Shellfish *RETIRED-05/22/12 [Shellfish] Allergy (Intermediate, Verified 08:28) povidone-iodine [From Betadine] Allergy (Verified 12/15/17 11:03) weepy blisters soap [From Betadine] Allergy (Verified 12/15/17 11:03) weepy blisters Home Medications: Medication Instructions Recorded Allopurinol [Allopurinol 300 MG 150 mg PO BID 07/16/14 (RX)] Atorvastatin Calcium [Lipitor 20 20 mg PO HS 07/16/14 mg (*)] Calcium Carbonate [Tums 500MG (*)] 500 mg PO TID 07/16/14 Cholecalciferol (Vitamin D3) 4,000 unit PO DAILY@10 07/16/14 [Vitamin D3] Levalbuterol Inhaler [Xopenex Hfa 1 - 2 puffs IH BID PRN 07/16/14 Inhaler (*)] Magnesium Sulf 4 gm/Water 4 gm IV Q30D 07/16/14 [Magnesium Sulf 4 gm (Premix)] Ranitidine HCl 150 mg PO BID@08,14 07/16/14 Valsartan [Diovan (*)] 80 mg PO BID@08,14 07/16/14 Amiloride 10 mg PO BID@08,14 07/01/17 Anastrozole [Arimidex 1 mg (*)] 1 mg PO DAILY@17 07/01/17 Calcitriol [Calcitriol (*)] 0.25 mcg PO DAILY10 07/01/17 Magnesium Oxide [Magnesium Oxide 1,200 mg PO TID@,,07/01/17 400 mg (*)] Felodipine [Plendil 5 MG (*)] 5 mg PO DAILY 09/07/17 Gabapentin [Neurontin 100 MG (*)] 200 mg PO HS 09/07/17 Levothyroxine [Synthroid 137 mcg 137 mcg PO DAILY06 09/07/17 (*)] Magnesium Chloride [Slow-Mag] 1 each PO DAILY@17 09/07/17 Magnesium Chloride [Slow-Mag] 2 each PO DAILY 09/07/17 clonIDINE [Catapres-Tts (*)] 0.3 mg TD TU@21 09/07/17 Fluticasone/Salmeter 250/50Mcg 1 puffs IH BID 12/13/17 [Advair 250/50 (*)] Spironolactone [Aldactone 25 MG 25 mg PO DAILY@14 12/13/17 (*)] Methocarbamol [Robaxin 500 mg (*)] 500 mg PO TID PRN #60 tab 12/22/17 Ondansetron Odt [Zofran Odt 4 mg 4 - 8 mg PO Q6HRS PRN #60 tab 12/22/17 (*)] oxyCODONE IR [Oxycodone Ir (*)] 5 - 10 mg PO Q4HRS PRN #60 tab 12/22/17 Medical Decision Making - Diagnostics Imaging Results: Imaging Impressions Chest X-Ray 12/23/17 17:21 Impression: Borderline cardiac silhouette enlargement (possibly augmented by portable AP technique), with mild peribronchial thickening and left perihilar diskoid subsegmental atelectasis. Extremity Venous Study 12/23/17 17:21 Impression: No deep venous thrombosis bilateral legs. Results called and discussed with Umu Mahmood PA-C, At 12/23/2017 18:33. Images reviewed myself (Marciano Mahmood) ED Course/Re-evaluation: 5:25 p.m.: Old medical records reviewed. Case discussed with secondary supervising physician Dr. Jean-Baptiste in the ER who also examined the patient Will obtain diagnostic studies include chest x-ray, ultrasound, Narcan at bedside. Will plan on likely readmission. 5:45 p.m.: Patient's chemistry reviewed by myself. She does have a noted history of renal dysfunction. Patient's laboratory studies are pre-hospital/ EMS. Will obtain repeat chemistry to ensure these are not factitious values. 6:00 p.m.: Re-evaluation. Family at bedside. Patient is more more alert and awake at this time. 6:50 p.m.: Discussed the negative ultrasound results with the patient. Awaiting further repeat chemistry including magnesium levels. At this time I do not think that it is safe to discharge the patient home given her recent surgery, multiple comorbidities, likely accidental opiate overdose. Have recommended admission which family is agreeable with. 6:57 p.m.: Phone consultation with Dr. Timmy Allen neurosurgery. He will plan on consulting. Dr. Denisha Moreno is not available for contact at this time. 7:00 p.m.: Phone consultation with hospice Dr. Haritha Ash who will admit patient primarily. (Marciano Mahmood) - Data Points Laboratory Results: Laboratory Results 12/23/17 17:05 12/23/17 18:36 12/23/17 12/23/17 12/23/17 18:36 17:05 17:05 WBC 17.84 10^3/uL H 10^3/uL (3.80-9.50) RBC 4.35 10^6/uL 10^6/uL (4.18-5.33) Hgb 11.8 g/dL L g/dL (12.6-16.3) Hct 38.2 % % (38.0-47.0) MCV 87.8 fL fL (81.5-99.8) MCH 27.1 pg L pg (27.9-34.1) MCHC 30.9 g/dL L g/dL (32.4-36.7) RDW 15.4 % H % (11.5-15.2) Plt Count 252 10^3/uL 10^3/uL (150-400) MPV 9.3 fL fL (8.7-11.7) Neut % (Auto) 76.6 % H % (39.3-74.2) Lymph % (Auto) 12.7 % L % (15.0-45.0) Gila % (Auto) 9.6 % % (4.5-13.0) Eos % (Auto) 0.1 % L % (0.6-7.6) Baso % (Auto) 0.3 % % (0.3-1.7) Nucleat RBC Rel Count 0.0 % % (0.0-0.2) Absolute Neuts (auto) 13.66 10^3/uL H 10^3/uL (1.70-6.50) Absolute Lymphs (auto) 2.27 10^3/uL 10^3/uL (1.00-3.00) Absolute Monos (auto) 1.72 10^3/uL H 10^3/uL (0.30-0.80) Absolute Eos (auto) 0.01 10^3/uL L 10^3/uL (0.03-0.40) Absolute Basos (auto) 0.05 10^3/uL 10^3/uL (0.02-0.10) Absolute Nucleated RBC 0.00 10^3/uL 10^3/uL (0-0.01) Immature Gran % 0.7 % % (0.0-1.1) Immature Gran # 0.13 10^3/uL H 10^3/uL (0.00-0.10) Sodium 132 mEq/L L mEq/L 132 mEq/L L mEq/L (135-145) (135-145) Potassium 5.3 mEq/L H mEq/L 5.4 mEq/L H mEq/L (3.5-5.2) (3.5-5.2) Chloride 95 mEq/L L mEq/L 92 mEq/L L mEq/L (97-110) (97-110) Carbon Dioxide 28 mEq/l mEq/l 30 mEq/l mEq/l (22-31) (22-31) Anion Gap 9 mEq/L mEq/L 10 mEq/L mEq/L (8-16) (8-16) BUN 36 mg/dL H mg/dL 35 mg/dL H mg/dL (7-23) (7-23) Creatinine 1.8 mg/dL H mg/dL 1.9 mg/dL H D mg/dL (0.6-1.0) (0.6-1.0) Estimated GFR 28 26 Glucose 108 mg/dL H mg/dL 162 mg/dL H mg/dL (70-100) (70-100) Calcium 8.4 mg/dL L mg/dL 8.9 mg/dL mg/dL (8.5-10.4) (8.5-10.4) Magnesium 2.1 mg/dL mg/dL (1.6-2.3) TSH 0.098 uIU/mL L uIU/mL (0.465-4.680) Free T4 1.56 ng/dL ng/dL (0.59-2.19) Free T3 2.83 pg/mL pg/mL (2.77-5.27) Medications Given: Discontinued Medications Naloxone HCl (Narcan) 0.4 mg IVP EDNOW ONE Stop: 12/23/17 17:20 Last Admin: 12/23/17 18:14 Dose: Not Given Departure - Departure Disposition: [facility] Inpatient Acute Clinical Impression: Apnea spell Opiate overdose Qualifiers: Encounter type: initial encounter Injury intent: accidental or unintentional Qualified Code(s): T40.601A - Poisoning by unspecified narcotics, accidental ( unintentional), initial encounter Condition: Fair
[2017-12-23 17:26] LABS: PLATELET COUNT 252 10^3/uL (150-400)
--- NOTE | 2017-12-23 18:45 | CPEKG ---
Heart Rate: 93 RR Interval: 645 P-R Interval: 180 QRSD Interval: 94 QT Interval: 320 QTC Interval: 398 P [place]: 38 QRS [place]: -11 T Wave [place]: -4 EKG Severity - ABNORMAL ECG - EKG Impression: SINUS RHYTHM EKG Impression: PROBABLE INFERIOR INFARCT, AGE INDETERMINATE EKG Impression: BORDERLINE R WAVE PROGRESSION, ANTERIOR LEADS Electronically Signed By: Larissa Jean-Baptiste 23-Dec-2017 20:47:20
[2017-12-23] MEDS ORDERED: ONDANSETRON DISINTEGRATING 4 MG TAB PO PRN (19:33)
[2017-12-23] MEDS ORDERED: ONDANSETRON 4 MG/2 ML VIAL IVP PRN (19:33)
--- NOTE | 2017-12-23 21:20 | GHP ---
[f rep st] HISTORY AND PHYSICAL DATE OF ADMISSION: 12/23/2017 CHIEF COMPLAINT: Episode of apnea. HISTORY OF PRESENT ILLNESS: A 67-year-old female with history of morbid obesity, GUANAKO on CPAP, who is postop day 2 for 3-level ACD[address] Dr. Moreno, who was difficult to arouse this afternoon by her husb and. He noted her having frothing at her mouth. Upon EMS arrival, she was unarousable, nasal trumpe t placed and given 0.5 mg of Narcan. She has no recollection of events. Medications taken in the last 24 hours: 25 mg of oxycodone, Robaxin last night, gabapentin last nigh t, and Zofran. She denies any fevers, chills, or sweats. Vomiting last night that improved with Zofran. Per family , she has been confused over the last couple days. She has been on oxygen for the last couple of tue. She did use her CPAP last night. REVIEW OF SYSTEMS: I completed a 10-point review of systems, negative except as noted in HPI. PAST MEDICAL HISTORY: CKD, morbid obesity, GUANAKO on CPAP, hypomagnesium; followed at [facility] do, hypothyroidism, hypoparathyroidism, CAD, Graves disease, gout, hyperlipidemia, thyroid cancer, br east cancer. PAST SURGICAL HISTORY: Two TKAs, plates in her ankles, Achilles rupture, , lumbar fusion, 2 breast lumpectomies. SOCIAL HISTORY: Lives with her , been 46 years. Lives in [place]. No alcohol, to bacco, or illicits. FAMILY HISTORY: Noncontributory. HOME MEDICATIONS: Oxycodone 5-10 q.4 hours p.r.n., clonidine 0.3 every Tuesday, valsartan 80 mg b.i. d., spironolactone 25 mg daily, ranitidine, Zofran as needed, Robaxin 500 mg t.i.d. p.r.n., mag sulfa te 4 g q.30 days, mag oxide 1200 mg t.i.d., mag chloride 2 each daily; 1 and then 1 additional at 5:0 0, levothyroxine 137 mcg, Xopenex p.r.n., gabapentin 200 mg q.h.s., Advair 1 puff b.i.d., amlodipine 5 mg daily, vitamin D3, Tums as needed, calcitriol 0.25 mcg daily, Arimidex 1 mg daily, amiloride 10 mg b.i.d., allopurinol 150 mg b.i.d. ALLERGIES: Multiple. See S[place]. PHYSICAL EXAMINATION: VITAL SIGNS: Temperature 36.8, blood pressure 108/62, heart rate 113;, now 84 , respirations 18, 91% on 2 L, 94 on 4. GENERAL: Morbidly obese female, sitting up in bed, appears tired. HEENT: Pupils small, round, reactive. NECK: Brace in place. CV: Regular. No murmurs, ga llops, or rubs. LUNGS: Clear. ABDOMEN: Obese, soft, nontender, nondistended. Positive bowel soun ds. : No Ibarra. MUSCULOSKELETAL: 5/5 upper lower extremity strength. SKIN: Lumbar surgical in cision, healing. NEUROLOGIC: 2 through 12 intact. PSYCHIATRIC: She is alert to place, not to date . LABORATORY DATA: WBC 17, hemoglobin 11, hematocrit 38, platelets 252. Sodium 132, potassium 5.3, ch loride 95, carbon dioxide 28, BUN 36, creatinine 1.8; baseline is 1 to 1.2, glucose 108, calcium is 8 .4, mag is 2.1. TSH is 0.098, free T4 is 1.56, T3 is 2.83. EKG, personally reviewed by me, sinus rh ythm, borderline R-wave progression. Lower extremity ultrasound: No DVT. ASSESSMENT AND PLAN: 1. Apnea: Secondary to overmedication in the setting of obstructive sleep apnea and morbid obesity. We will hold these medications. She will use her continuous positive airway pressure this evening. She likely is a CO2 retainer. Continuous pulse oximetry. 2. Chronic hypoxic respiratory failure: She has been on 2 L over the last couple of months. She escobedo s not had increased needs. We will continue this. 3. Obstructive sleep apnea: Continuous positive airway pressure. 4. Hypomagnesium: She receives monthly infusions at the [facility]. Continue with supp lementation here. 5. Hypothyroidism: Levothyroxine. 6. Hypoparathyroidism: Calcitriol. 7. Gout: Allopurinol. 8. Coronary artery disease: Resume home medications. 9. Hypertension: Resume home medications. 10. Breast cancer: On Arimidex. Takes clonidine for hot flashes. 11. Hyperlipidemia. 12. Leukocytosis: May be stress inflammation with nausea, vomiting. We will hydrate gently and rep eat in the morning. She is afebrile. Denies any infectious symptoms. 13. Hypovolemic hyponatremia in the setting of decreased p.o. intake and vomiting. Gentle intraveno us fluids. 14. Acute kidney injury: Creatinine elevated 1.8, normally 1. Hydrate and repeat. 15. Hyperkalemia in the setting of acute kidney injury. No PTs, we will repeat. Monitor on telemet ry. 16. Diet. 17. Speech evaluation in the morning. 18. Deep venous thrombosis prophylaxis: Lovenox. 19. Patient warrants inpatient admission given apnea and polypharmacy, requiring continuous pulse ox imetry, continuous positive airway pressure. /[id number]/MODL
[2017-12-23] MEDS ORDERED: MAGNESIUM CHLORIDE 64 MG TAB PO SCH ×2 (22:00→23:00)
[2017-12-23] MEDS ORDERED: MAGNESIUM OXIDE 400 MG TAB PO SCH (22:00)
[2017-12-23] MEDS: NS 1,000 ML IV SCH (22:01)
[2017-12-23] MEDS: CALCIUM CARBONATE 500 MG CHEWABLE TAB PO SCH (22:52)
[2017-12-23] MEDS: ACETAMINOPHEN 325 MG TAB PO PRN (22:53)
[2017-12-23] MEDS: MAGNESIUM OXIDE 400 MG TAB PO SCH (23:04)
--- NOTE | 2017-12-23 23:26 | PDMN ---
Medical Necessity Medical necessity: C/M review: est. > 2 MN LOS for eval and TX of acute apnea secondary to overmedication in the setting of obstructive sleep apnea and morbid obesity - medications in prior 24 hrs. to this admission - oxycodone, robaxin, gabapentin, Zofran (polypharmacy), leukocytosis, hypovolemic hyponatremia, acute kidney injury, hyperkalemia, requiring planned 12/24/2017 ST eval ongoing pulse oximetry, supplemental O2, CPAP, cardiac monitoring, IV fluids comorbid chronic hypoxic respiratory failure on O2 2l/min over prior 2 months, hypomagnesium, hypothyroidism, gout, CAD, hypertension, hyperlipidemia, history of breast cancer on arimidex, hypoparathyroidism, thyroid cancer, per H/ P.
[2017-12-24] MEDS: ACETAMINOPHEN 325 MG TAB PO PRN ×2 (03:34→10:41)
[2017-12-24] MEDS: LEVOTHYROXINE 137 MCG TAB PO SCH (06:09)
[2017-12-24] MEDS ORDERED: FELODIPINE 5 MG TAB.ER PO SCH (09:00)
[2017-12-24] MEDS: NS 1,000 ML IV SCH (10:21)
[2017-12-24] MEDS: CHOLECALCIFEROL VIT D3 2,000 UNITS TAB/CAP PO SCH ×2 (10:38→12:07)
[2017-12-24] MEDS: MAGNESIUM OXIDE 400 MG TAB PO SCH ×4 (10:39→20:11)
[2017-12-24] MEDS: CALCIUM CARBONATE 500 MG CHEWABLE TAB PO SCH ×4 (10:39→20:12)
[2017-12-24] MEDS: CALCITRIOL 0.25 MCG CAP PO SCH ×2 (10:39→12:08)
[2017-12-24] MEDS: MAGNESIUM CHLORIDE 71.5 MG PO SCH ×2 (10:49→17:34)
[2017-12-24] MEDS: FAMOTIDINE 20 MG TAB PO SCH ×2 (10:52→13:51)
[2017-12-24] MEDS: LEVALBUTEROL INHALER 200 PUFFS/15 GM MDI IH PRN (11:55)
[2017-12-24] MEDS: FLUTICASONE/SALMETER 250/50MCG DISKUS IH SCH ×2 (11:56→21:10)
--- NOTE | 2017-12-24 12:21 | ASMTCMCOM ---
CM Note CM Note Notes: Pt admitted for accidental overdoes. Therapies pending. CM to follow. Date Signed: 12/24/2017 12:20 PM Electronically Signed By:Ifeoma Benton LCSW
[2017-12-24] MEDS ORDERED: METHOCARBAMOL 500 MG TAB PO PRN (13:32)
[2017-12-24] MEDS ORDERED: oxyCODONE IR 5 MG TAB PO PRN (13:33)
[2017-12-24] MEDS: HYDROCODONE/APAP 5/325 TAB PO PRN ×2 (13:51→20:13)
[2017-12-24] MEDS ORDERED: SPIRONOLACTONE 25 MG TAB PO SCH (14:00)
[2017-12-24] MEDS ORDERED: VALSARTAN 80 MG TAB PO SCH (14:00)
--- NOTE | 2017-12-24 15:01 | GCON ---
[f rep st] CONSULTATION HISTORY OF PRESENT ILLNESS: The patient is a 67-year-old female, who is 3 days postop from a C3 through 6 ACDF, with partial corpectomy at C5, by Dr. Moerno. She did well postoperatively, and was discharged home. She has a history of morbid obesity, obstructive sleep apnea on CPAP, and yesterday afternoon she was difficult to arouse by her . He noted frothing at the mouth and called EMS. EMS secured airway and gave 0.5 Narcan per report. The patient has recovered now and she is doing well. She has no current issues. She slept well overnight. She is currently eating. She states she has not eaten in 4 days. She is having some coughing while she is attempting to eat. She has no recollection of the event. She states she did not take too many medications, as her had been dispensing them. She states her hands feel better postoperatively, but she did not have much of an appetite. She denied any weakness, tingling, fine motor difficulties. She states she does have continued neck pain, and the collar is uncomfortable. She denies any wound issues. PAST MEDICAL HISTORY: Include chronic kidney disease, morbid obesity, obstructive sleep apnea, hypomagnesium, hypothyroidism, hypoparathyroidism, coronary artery disease, Graves disease, gout, hyperlipidemia, thyroid cancer, history of breast cancer. PAST SURGICAL HISTORY: The patient has had 2 total knee arthroplasties, lumbar fusion, cervical fusion, 2 breast lumpectomies, Achilles rupture repair, prior section, as well as plates placed in her ankles. SOCIAL HISTORY: She lives with her . She has been for 46 years. She has not use alcohol, tobacco, or illicit drugs. FAMILY HISTORY: She has no significant family history that contributes to the current illness. REVIEW OF SYSTEMS: Negative, except as stated above. HOME MEDICATIONS: Include oxycodone 5-10 mg q.4 hours p.r.n., clonidine 0.3 mg every Tuesday, valsartan 80 mg b.i.d., spironolactone 25 mg daily, ranitidine and Zofran as needed, Robaxin 500 mg t.i.d. p.r.n., mag sulfate 4 g q.30 days, mag oxide 1200 mg t.i.d., mag chloride 2 each daily, levothyroxine 137 mcg daily , Xopenex p.r.n., gabapentin 200 mg every evening, Advair 1 puff b.i.d., amlodipine 5 mg daily, vitamin D3 daily, calcium carbonate as needed, calcitriol 0.25 mcg daily, Arimidex 1 mg daily, amiloride 10 mg b.i.d., allopurinol 150 mg b.i.d. ALLERGIES: Include amlodipine, cefazolin, cephalexin, doxycycline, hydrochlorothiazide, hydromorphone, indomethacin, iodine contrast, labetalol, levofloxacin, lisinopril, losartan, nitrofurantion, penicillin allergy, sulfa allergies, tramadol, verapamil, shellfish, Betadine soap, povidone-iodine from Betadine. NEUROLOGICAL EXAMINATION: VITAL SIGNS: Last vitals recorded, blood pressure 123/83, pulse 83, respirations 18, 98% on 2 L nasal cannula. Temperature 37 degrees. GENERAL: The patient is alert and oriented x3. She is in no apparent distress. She is eating. NEUROLOGIC: Cranial nerves 2-12 are grossly intact. Extraocular moves are intact. Pupils are equal, reactive to light. She has no facial droop. She moves all extremities x4. She appears 5/ 5 strength in her bilateral upper and lower extremities. Sensation is intact to light touch. SKIN: Her incision is clean, dry, and intact. NECK: She is currently wearing her cervical collar. NEUROLOGICAL ASSESSMENT AND PLAN: The patient is 3 days postop C3 through 6 anterior cervical diskectomy and fusion, with partial C5 corpectomy; who was found unarousable by her yesterday afternoon, and was treated with Narcan, currently suspected an overdose of her postoperative pain medications. She is doing well now and she has been admitted to the hospitalist service for her multiple medical issues and largely being managed by them. She has no acute neurosurgical issues at this time. Her wound appears healing well. Her swallow appears intact, however, she has just begun to eat. Would recommend Speech Therapy to evaluate her if nursing has any concerns for a swallow. Also recommended nursing change her dressing to a smaller dressing to hopefully make it easier to wear the collar and make things a little more comfortable when she is attempting to eat. Otherwise, we have no additional concerns or recommendations. We will follow along peripherally. Neurosurgery will sign off at this time. Thank you for this consultation. Pt was also seen and dw Dr. Allen /[id number]/MODL MTDD
--- NOTE | 2017-12-24 15:04 | HOSPPROG ---
Hospitalist Progress Note Assessment/Plan: 67 yo F with hx of morbid obesity, MER[facility] on CPAP s/p recent ACDF presenting with AMS and acute hypoxic resp failure in the setting of inadvertent opiate od # acute encephalopathy: resolved but patient very somnolent and difficult to arouse on arrival and overnight, this was in the setting of new rx of opiate pain medication and inadvertent overdose. She was given narcan with resolution of sxs. Will resume home medications cautiously. # acute on chronic hypoxic resp failure: in setting of recent ACDF and in setting of inadvertent OD, CXR personally reviewed and notable for atelectasis. Suspect this is due largely to atelectasis, aspiration would be a concern as well however given recent surgery. Will ask PLATE PAINTER to eval, repeat cxr in am. IS. # nick on ckd: baseline creatinine of 1.2, only minimally improved overnight, will check UA, urine Na and creatinine and continue to trend, obtain PVR given recent surgery. Holding allopurinol and valsartan # mercy/morbid obesity: continue nocturnal cpap, likely ohs contributing # hypomag/hypocalcemia: with hx of prior parathyroidectomy, continue repletion, will check mg level in am but has been appropriate # cervical stenosis: s/p ACDF several days ago, appreciate nsg eval, continue c collar # hx of breast cancer: continue arimidex # RAD: without e/o acute exacerbation, continue op inhalers # htn: holding valsartan/aldactone given nick, holding felodipine given low bp, BP has been on low end despite holing antihypertensives suspect due to volume status, will given gentle IVF # pain: patient nervous about pain medications given her reaction at home, will start with norco and add oxycodone only if needed # dispo: IP status, will likely need > 48 hours stay for eval/mgmt of above Patient new to my care. Old records reviewed and summarized as above. Care plan reviewed with present at bedside. Subjective: no significant overnight events,patient more alert today Objective: Vital Signs Temp Pulse Resp BP Pulse Ox 37.0 C 83 18 123/83 H 90 L 12/24/17 12:00 12/24/17 12:00 12/24/17 12:00 12/24/17 12:00 12/24/17 12:00 Laboratory Results 12/24/17 05:23 12/24/17 05:23 12/23/17 12/24/17 12/25/17 05:59 05:59 05:59 Intake Total 170 950 Output Total 850 150 Balance -680 800 awake alert nad anicteric op clear rrr no mrg dec bs throughout obese soft nt nd no cce warm dry well perfused - Time Spent With Patient Time Spent with Patient: greater than 35 minutes Time Spent with Patient: Greater than 35 minutes spent on this patients care, greater than 50% of time spent counseling, educating, and coordinating care regarding the above mentioned plan. ICD10 Worksheet Patient Problems: Problems Problem Status Onset Cervical stenosis of spine Acute Neck pain Acute Apnea spell Acute Opiate overdose Acute
[2017-12-24] MEDS: ANASTROZOLE 1 MG TAB PO SCH (16:33)
[2017-12-24] MEDS: ENOXAPARIN 40 MG/0.4 ML SYR SC SCH (20:12)
[2017-12-24] MEDS ORDERED: ATORVASTATIN CALCIUM 20 MG TAB PO SCH (21:00)
[2017-12-24] MEDS ORDERED: GABAPENTIN 100 MG CAP PO SCH (21:00)
[2017-12-24] MEDS ORDERED: ALLOPURINOL 300 MG TAB PO SCH (21:00)
[2017-12-25] MEDS: HYDROCODONE/APAP 5/325 TAB PO PRN ×3 (01:38→17:14)
[2017-12-25 05:23] LABS: PLATELET COUNT 178 10^3/uL (150-400)
[2017-12-25] MEDS: LEVOTHYROXINE 137 MCG TAB PO SCH (06:22)
[2017-12-25] MEDS: FAMOTIDINE 20 MG TAB PO SCH ×2 (08:11→14:37)
[2017-12-25] MEDS: ENOXAPARIN 40 MG/0.4 ML SYR SC SCH (08:52)
[2017-12-25] MEDS: CALCIUM CARBONATE 500 MG CHEWABLE TAB PO SCH ×2 (08:55→15:57)
[2017-12-25] MEDS: MAGNESIUM OXIDE 400 MG TAB PO SCH ×2 (08:55→15:57)
[2017-12-25] MEDS: MAGNESIUM CHLORIDE 71.5 MG PO SCH ×2 (08:59→17:12)
[2017-12-25] MEDS: FLUTICASONE/SALMETER 250/50MCG DISKUS IH SCH (09:14)
[2017-12-25] MEDS ORDERED: VALSARTAN 80 MG TAB PO SCH (09:15)
[2017-12-25] MEDS ORDERED: ALLOPURINOL 100 MG TAB PO SCH (09:15)
[2017-12-25] MEDS ORDERED: FELODIPINE 5 MG TAB.ER PO SCH (10:00)
[2017-12-25] MEDS: CHOLECALCIFEROL VIT D3 2,000 UNITS TAB/CAP PO SCH (10:07)
[2017-12-25] MEDS: CALCITRIOL 0.25 MCG CAP PO SCH (10:08)
[2017-12-25] MEDS: AMILORIDE 5 MG TAB PO SCH ×2 (10:39→14:37)
[2017-12-25] MEDS: LEVALBUTEROL INHALER 200 PUFFS/15 GM MDI IH PRN (12:08)
[2017-12-25 15:56] VITALS: BP 107/71
--- NOTE | 2017-12-25 16:38 | ASMTCMCOM ---
CM Note CM Note Notes: Pr has GRAPHIC ENGINEER eval today and has no needs. PT/OT have not seen pt yet. CM will follow for DC needs. Date Signed: 12/25/2017 04:37 PM Electronically Signed By:Ifeoma Benton LCSW
--- NOTE | 2017-12-25 16:52 | PDDCSUM ---
Discharge Summary Discharge Summary: Dates of service 12/23-12/25/17 Consultations: neurosurgery Procedures: none Hospital course by problem: 67 yo F with hx of morbid obesity, GUANAKO on CPAP s/p recent ACDF presenting with AMS and acute hypoxic resp failure in the setting of inadvertent opiate od # acute encephalopathy: resolved and responded to narcan, related to inadvertent medication OD as next # inadvertent opiate overdose: in the setting of being on pain medications newly and taking multiple other centrally acting meds, contribution of FADI and poor metabolism of meds contributing as well as multiple centrally acting meds on board. Resolved and doing better on norco with pain still controlled. # acute on chronic hypoxic resp failure: in setting of recent ACDF and in setting of inadvertent OD, CXR personally reviewed and notable for atelectasis. Improved, no e/o aspiration. # fadi on ckd: baseline creatinine of 1.2, held BP meds as patient relatively hypotensive and dry appearing and now improved to better than usual baseline. Usual meds resumed, will need to monitor renal function (patient very reluctant to make any changes in her usual bp/ca/mg meds) # guanako/morbid obesity: continue nocturnal cpap, likely ohs contributing # hypomag/hypocalcemia: with hx of prior parathyroidectomy, continue repletion per her OP regimen # cervical stenosis: s/p ACDF several days ago, appreciate vidya goodrich, continue c collar # hx of breast cancer: continue arimidex # RAD: without e/o acute exacerbation, continue op inhalers # htn: resumed valsartan/aldactone/felodipine as above, BP creeping back up and kidney function normalized, recommend this be monitored closely as possible she is being overmedicated for her BP however as above patient very reluctant to make any changes to her home meds # pain: patient nervous about pain medications given her reaction at home, will start with norco and add oxycodone only if needed DC home f/u with PCP Items for f/u: --monitoring of kidney function since resumption of ARB and diuretic --monitoring of BP back on her usual BP meds---some concern her BP is being overtreated --monitoring pain management and any SE from pain meds > 35 min spent in dc more than half in coordination of care
[2017-12-25] MEDS: ANASTROZOLE 1 MG TAB PO SCH (17:12)
== END 2017-12-25 17:27 | disposition home or self-care (01) | DRG 917 ==
LOC: EDUNIT# → OBSVTOIN 19:01 → F3N 20:40
PROVIDERS: ADMIT Internal Medicine; ATTEND Internal Medicine
DX: T50.7X1A Poisoning by analeptics and opioid receptor antagonists, accidental (unintentional), initial encounter (principal); J96.21 Acute and chronic respiratory failure with hypoxia; G93.49 Other encephalopathy; N17.9 Acute kidney failure, unspecified; I12.9 Hypertensive chronic kidney disease with stage 1 through stage 4 chronic kidney disease, or unspecified chronic kidney disease; N18.9 Chronic kidney disease, unspecified; G47.33 Obstructive sleep apnea (adult) (pediatric); E66.01 Morbid (severe) obesity due to excess calories; E83.42 Hypomagnesemia; E83.51 Hypocalcemia; M48.02 Spinal stenosis, cervical region; J45.909 Unspecified asthma, uncomplicated; M10.9 Gout, unspecified; E78.5 Hyperlipidemia, unspecified; Z98.1 Arthrodesis status; Z85.3 Personal history of malignant neoplasm of breast
CPT/HCPCS: 84481-90; 92610-GN; G8996-GN-CH; G8997-GN-CH; G8998-GN-CH; J1650; J2310

== ENCOUNTER → 2018-01-27 | Outpatient (CLI) | payer OTHER | LOC: FIMAGING 14:31 | PROVIDERS: ATTEND Physician Assistant Surgical | DX: Z09 Encounter for follow-up examination after completed treatment for conditions other than malignant neoplasm (principal); Z98.1 Arthrodesis status ==

== ENCOUNTER → 2018-03-10 | Outpatient (CLI) | payer OTHER | LOC: FIMAGING 14:22 | PROVIDERS: ATTEND Physician Assistant Surgical | DX: Z98.1 Arthrodesis status (principal) ==

== ENCOUNTER → 2018-06-20 | Outpatient (CLI) | payer OTHER | LOC: FIMAGING 15:40 | PROVIDERS: ATTEND Physician Assistant Surgical | DX: M43.22 Fusion of spine, cervical region (principal) ==

== ENCOUNTER → 2018-09-08 | Outpatient (CLI) | payer OTHER | LOC: FIMAGING 14:38 | PROVIDERS: ATTEND Internal Medicine Hematology & Oncology | DX: C50.412 Malignant neoplasm of upper-outer quadrant of left female breast (principal); Z17.0 Estrogen receptor positive status [ER+]; N64.4 Mastodynia ==

== ENCOUNTER → 2018-09-25 | Outpatient (CLI) | payer OTHER ==
[~2018-09-25] MED LIST changes: +BUPIVACAINE 0.5% 30 ML SDV ONE; +LIDOCAINE 1% 300 MG/30 ML SDV ONE; -VANCOMYCIN 1.5 GM in NS 250 ML IV ONE
== END ==
LOC: FIMAGING 07:25
PROVIDERS: ATTEND Physician Assistant
DX: C50.412 Malignant neoplasm of upper-outer quadrant of left female breast (principal); Z17.0 Estrogen receptor positive status [ER+]

== ENCOUNTER 2018-10-30 13:11 | Observation (INO) | payer OTHER ==
--- NOTE | 2018-10-30 13:26 | EDPHY ---
H & P Stated Complaint: SOB SINCE YEST, CP, INCREASED O2 NEED, HOLTER LAST WEEK Time Seen by Provider: 10/30/18 13:29 HPI/ROS: CHIEF COMPLAINT: Dyspnea, chest pain, nausea HISTORY OF PRESENT ILLNESS: The patient is a 68 y/o female with history of morbid obesity, obstructive sleep apnea, asthma, and CAD who arrives with her complaining of worsening dyspnea. She developed intermittent centralized chest pain October 18, 12 days ago. This pain wakes her up early in the morning and lasts about 10-30 minutes. It occasionally happens during the day if walking around for extended periods of time, for instance while grocery shopping. She saw her mortgage lender for this and has been wearing a ZIO patch for the last 5 days and mailed in the recorder yesterday, so she does not yet know the results. Yesterday in the middle of the day her baseline dyspnea worsened acutely. She describes being "profoundly short of breath to the point where I thought I was going to pass out." Her intermittent chest pain has been almost constant since these shortness of breath symptoms began. She has waxing and waning nausea associated with this pain and an intermittent cough when short of breath. She has noticed some increase in leg swelling and mentions her blood pressure medications have been changed recently. She is compliant with her medications, including inhalers. No abdominal pain, fever, vomiting, diarrhea. She takes a daily aspirin and got a flu vaccination this season. No prior history of blood clots. She has an echocardiogram scheduled for the end of this month. REVIEW OF SYSTEMS: A ten system review of systems was performed and is negative with the exception of the items mentioned in the HPI. Past medical history: 1. Chronic kidney disease 2. Morbid obesity 3. Obstructive sleep apnea on CPAP 4. Hypomagnesium 5. Hypothyroidism and hypoparathyroidism, Graves disease, thyroid cancer 6. CAD 7. Gout 8. Hyperlipidemia 9. Breast cancer 10. Asthma, O2 at night Past surgical history: 1. Two TKAs 2. Plates in ankles 3. Achilles rupture 4. 5. Lumbar fusion 6. Breast lumpectomies x2 Family history: Noncontributory Social history: , at bedside. Nonsmoker. No alcohol. Lives in [place]. Microwave Technician: Mindy Fajardo NP Prior medical records reviewed included admission 12/23/17 for inadvertent opiate overdose. General Appearance: Alert. Vital signs reviewed. Blood pressure 162/71, pulse ox 91% on room air, respiratory rate 30 at triage. Eyes: Pupils equal and round, no conjunctival injection, no discharge. Anicteric. ENT, Mouth: Mucous membranes are moist, no oropharyngeal erythema or edema. Neck: No lymphadenopathy, supple. Respiratory: Lungs having expiratory wheezing to auscultation; no rales or rhonchi. Cardiovascular: Regular rate and rhythm; no murmur, rub, or gallop. Distant breath sounds Gastrointestinal: Abdomen is obese, soft and nontender, obese, no palpable masses or organomegaly. Skin: Warm and dry, no rashes on exposed skin, normal color. Back: Nontender to palpation over the thoracolumbar spine. No CVAT. Extremities: Trace lower extremity edema bilaterally, no calf tenderness. Neurological: Alert and oriented. Moving all four extremities easily and equally. Psychiatric: Normal affect. - Personal History Current Tetanus/Diphtheria Vaccine: Yes Tetanus Vaccine Date: 2010 - Medical/Surgical History Hx Asthma: Yes Hx Chronic Respiratory Disease: No Hx Diabetes: No Hx Cardiac Disease: Yes Hx Renal Disease: Yes Hx Cirrhosis: No Hx Alcoholism: No Hx HIV/AIDS: No Hx Splenectomy or Spleen Trauma: No Other PMH: CKD,ASTHMA, GERD, GRAVES, HTN, SLEEP APNEA, GOUT, ARRTHYMNIA W/ ABlATION X2, THYROID CA, BREAST CA, BACK SURG L3toS1, NEG CARDIAC CATH X3, R KNEE SURG, L KNEE SURG, HYST/OOP, lLt Lumpectomy, LOW MAG, ACDF C3-6, Bilat tendon rupture/repair, hyperparathyroidism, - Social History Smoking Status: Never smoked Constitutional: Initial Vital Signs Temperature (C) 37.3 C 10/30/18 13:17 Heart Rate 85 10/30/18 13:17 Respiratory Rate 30 H 10/30/18 13:17 Blood Pressure 162/71 H 10/30/18 13:17 O2 Sat (%) 91 L 10/30/18 13:17 O2 Delivery Mode Room Air O2 (L/minute) 2.5 Allergies/Adverse Reactions: amlodipine [From Norvasc] Allergy (Severe, Verified 09/09/17 08:34) Wheezing amlodipine besylate [From Norvasc] Allergy (Severe, Verified 09/09/17 08:27) Hypotension cefazolin sodium [From Ancef] Allergy (Severe, Verified 12/15/17 11:03) anaphalaxis cephalexin monohydrate [From Keflex] Allergy (Severe, Verified 12/15/17 11:03) Anaphylaxis doxycycline Allergy (Severe, Verified 12/15/17 11:03) Rash - takes with Benadryl hydrochlorothiazide Allergy (Severe, Verified 09/09/17 08:30) Rash hydromorphone [From Dilaudid] Allergy (Severe, Verified 09/09/17 08:33) Other-Enter Comments indomethacin Allergy (Severe, Verified 12/15/17 11:03) Rash,hives Iodinated Contrast- Oral and IV Dye [IV Dye, Iodine Containing] Allergy (Severe , Verified 12/15/17 11:03) SWELLING, hives iodine [Iodine] Allergy (Severe, Verified 09/09/17 08:27) Rash labetalol Allergy (Severe, Verified 09/09/17 08:29) Hypotension levofloxacin [From Levaquin] Allergy (Severe, Verified 09/09/17 08:28) Other-Enter Comments lisinopril Allergy (Severe, Verified 09/09/17 08:27) Hypotension losartan [From Cozaar] Allergy (Severe, Verified 09/09/17 08:30) Hypotension nitrofurantoin [From Macrodantin] Allergy (Severe, Verified 09/09/17 08:27) Hives Penicillins Allergy (Severe, Verified 09/09/17 08:27) Anaphylaxis Sulfa (Sulfonamide Antibiotics) Allergy (Severe, Verified 09/09/17 08:27) Anaphylaxis tramadol Allergy (Severe, Verified 09/09/17 08:32) Other-Enter Comments verapamil Allergy (Severe, Verified 09/09/17 08:34) Rash Shellfish *RETIRED-05/22/12 [Shellfish] Allergy (Intermediate, Verified 08:28) povidone-iodine [From Betadine] Allergy (Verified 12/15/17 11:03) weepy blisters soap [From Betadine] Allergy (Verified 12/15/17 11:03) weepy blisters Home Medications: Medication Instructions Recorded Allopurinol [Allopurinol 300 MG 150 mg PO BID 07/16/14 (RX)] Atorvastatin Calcium [Lipitor 20 20 mg PO HS 07/16/14 mg (*)] Calcium Carbonate [Tums 500MG (*)] 500 mg PO BID 07/16/14 Cholecalciferol (Vitamin D3) 4,000 unit PO DAILY@07/16/14 [Vitamin D3] Levalbuterol Inhaler [Xopenex Hfa 1 - 2 puffs IH QID PRN 07/16/14 Inhaler (*)] Ranitidine HCl 150 mg PO BID@,07/16/14 Amiloride 10 mg PO BID@,07/01/17 Anastrozole [Arimidex 1 mg (*)] 1 mg PO DAILY@07/01/17 Calcitriol [Calcitriol (*)] 0.25 mcg PO DAILY10 07/01/17 Magnesium Oxide [Magnesium Oxide 1,200 mg PO TID@,,07/01/17 400 mg (*)] Levothyroxine [Synthroid 137 mcg 137 [facility]cg [facility] 09/07/[facility] (*)] Magnesium Chloride [Slow-Mag] 1 each PO DAILY@09/07/17 Magnesium Chloride [Slow-Mag] 2 each PO BID@,09/07/17 clonIDINE [Catapres-Tts (*)] 0.3 mg TD TU@09/07/17 Fluticasone/Salmeter 250/50Mcg 1 puffs IH DAILY 12/13/17 [Advair 250/50 (*)] Spironolactone [Aldactone 25 MG 25 mg PO DAILY@12/13/17 (*)] Aspirin [Aspirin 325 mg (*)] 325 mg PO DAILY 10/30/18 Carboxymethylcellulose 1% [Refresh 1 drop EACHEYE TID PRN 10/30/18 Celluvisc (*)] Carvedilol [Coreg (*)] 3.125 mg PO BID@,10/30/18 Felodipine [Felodipine ER] 10 mg PO HS 10/30/18 Fluorometholone [Fml (*)] 1 drop EACHEYE AD 10/30/18 Levothyroxine [Synthroid 137 mcg 68.5 mcg PO TU 10/30/18 (*)] Benzonatate [Tessalon Pearles (RX)] 100 mg PO TID #30 cap 10/31/18 Oseltamivir Phosphate [Tamiflu 75 75 mg PO BIDMEAL #8 cap 10/31/18 mg (*)] guaiFENesin [Mucinex 600 MG (*)] 1,200 mg PO BID tab.er 10/31/18 Medical Decision Making - Diagnostics Imaging: Discussed imaging studies w/ pasting machine offbearer Radiologist, I viewed and interpreted images myself ED Course/Re-evaluation: This is a 68 y/o female with a history that includes morbid obesity, sleep apnea , asthma, and CAD who presents with a one-day history of worsening dyspnea and chest pain in the setting of intermittent chest pain for the last 2 weeks. She has wheezing on auscultation and is slightly dyspneic during history. Plan for IV, labs, EKG, chest x-ray, duo neb for symptoms. The 12 lead EKG was interpreted by myself. Sinus mechanism, rate 80. See hard copy and/or "tracemaster" electronic copy for interpretation. Chest x-ray: nothing acute D-dimer elevated 1.23. Reevaluated patient and discussed findings. Recommended chest CTA to evaluate for PE due to chest pain, dyspnea, and elevated d-dimer. She reports an allergy to contrast and has a slightly elevated creatinine at 1.1, though this is near baseline for her. Plan to proceed with CTA with pretreatment and 1L IV NS. Positive for flu A. Tamiflu given. No role for antibiotics. Chest CTA: limited PE study due to contrast bolus timing, no thrombus centrally. Cardiomegaly with CAD. See formal report. Discussed with radiologist. Oxygenation in low to mid 90s on 2L NC in the ED. Troponin negative. I doubt ACS. Influenza has likely tipped her over the edge in terms of oxygenation, exercise tolerance. Plan to admit for serial troponins, symptomatic care. Cardiology will be notified--they have been following her and she has been undergoing an outpatient work up. Dr. Mendoza accepting physician. Differential Diagnosis: Shortness of breath including but not limited to pulmonary infectious process, influenza, COPD, asthma, pulmonary embolus and congestive heart failure. - Data Points Laboratory Results: Laboratory Results 10/30/18 14:00 10/30/18 14:00 Medications Given: Discontinued Medications Albuterol/Ipratropium (Duoneb) 3 ml IH EDNOW ONE Stop: 10/30/18 14:26 Last Admin: 10/30/18 14:52 Dose: 3 ml Albuterol/Ipratropium (Duoneb) 3 ml IH QID CHRISTOPHER Stop: 04/28/19 20:59 Last Admin: 10/31/18 10:13 Dose: Not Given Allopurinol (Allopurinol) 150 mg PO BID CHRISTOHPER Stop: 04/28/19 20:59 Last Admin: 10/31/18 08:53 Dose: 150 mg Amiloride HCl (Amiloride) 10 mg PO BID@14 CHRISTOPHER Stop: 04/29/19 08:59 Last Admin: 10/31/18 13:18 Dose: 10 mg Aspirin (Aspirin) 325 mg PO DAILY CHRISTOPHER Stop: 04/29/19 08:59 Last Admin: 10/31/18 08:53 Dose: 325 mg Atorvastatin Calcium (Lipitor) 20 mg PO HS CHRISTOPHER Stop: 04/28/19 20:59 Last Admin: 10/30/18 21:10 Dose: 20 mg Calcitriol (Calcitriol) 0.25 mcg PO DAILY10 CHRISTOPHER Stop: 04/29/19 09:59 Last Admin: 10/31/18 09:01 Dose: 0.25 mcg Calcium Carbonate (Tums) 500 mg PO BID CHRISTOPHER Stop: 04/28/19 20:59 Last Admin: 10/31/18 08:53 Dose: 500 mg Carvedilol (Coreg) 3.125 mg PO BID@ [facility] Stop: 04/29/19 08:59 Last Admin: 10/31/18 08:53 Dose: 3.125 mg Cholecalciferol (Vitamin D) 4,000 units PO DAILY@1400 [facility] Stop: 04/29/19 13:59 Last Admin: 10/31/18 13:18 Dose: 4,000 units Diphenhydramine HCl (Benadryl Injection) 50 mg IVP ONCE ONE PRN Reason: Protocol Stop: 10/30/18 15:44 Last Admin: 10/30/18 15:55 Dose: 50 mg Famotidine (Pepcid) 20 mg PO BID@0900,1700 CHRISTOPHER Stop: 04/29/19 08:59 Last Admin: 10/31/18 08:53 Dose: 20 mg Felodipine (Plendil) 10 mg PO HS CHRISTOPHER Stop: 04/28/19 20:59 Last Admin: 10/30/18 21:10 Dose: 10 mg Fluorometholone (Fml) 1 drop EACHEYE BID [facility] Stop: 04/28/19 20:59 Last Admin: 10/31/18 08:54 Dose: 1 drop Guaifenesin (Mucinex) 1,200 mg PO BID CHRISTOPHER Stop: 04/29/19 12:14 Last Admin: 10/31/18 13:18 Dose: 1,200 mg Famotidine/Sodium Chloride (Pepcid 20 Mg (Premix)) 50 mls @ 200 mls/hr IV ONCE ONE PRN Reason: Protocol Stop: 10/30/18 15:57 Last Admin: 10/30/18 15:54 Dose: 50 mls Sodium Chloride (Ns) 1,000 mls @ 0 mls/hr IV CONT CHRISTOPHER; Per Protocol PRN Reason: Protocol Stop: 04/28/19 15:44 Last Admin: 10/30/18 15:54 Dose: 1,000 mls Sodium Chloride (Ns) 1,000 mls @ 100 mls/hr IV CONT CHRISTOPHER Stop: 04/28/19 18:44 Last Admin: 10/30/18 21:27 Dose: 1,000 mls Levothyroxine Sodium (Synthroid) 68.5 mcg PO Tu@0600 CHRISTOPHER Stop: 04/29/19 05:59 Last Admin: 10/31/18 05:14 Dose: 68.5 mcg Magnesium Chloride (Mag64) 128 mg PO BID CHRISTOPHER Stop: 04/28/19 20:59 Last Admin: 10/31/18 08:53 Dose: 128 mg Magnesium Oxide (Magnesium Oxide) 1,200 mg PO TID@09,16,21 CHRISTOPHER Stop: 04/28/19 20:59 Last Admin: 10/31/18 08:53 Dose: 1,200 mg Methylprednisolone Sodium Succinate (Solu-Medrol) 125 mg IVP ONCE ONE PRN Reason: Protocol Stop: 10/30/18 15:44 Last Admin: 10/30/18 15:54 Dose: 125 mg Ondansetron HCl (Zofran) 4 mg IVP EDNOW ONE Stop: 10/30/18 17:44 Last Admin: 10/30/18 17:46 Dose: 4 mg Oseltamivir Phosphate (Tamiflu) 75 mg PO EDNOW ONE Stop: 10/30/18 17:32 Last Admin: 02/18/19 17:37 Dose: 75 mg Oseltamivir Phosphate (Tamiflu) 75 mg PO BIDMEAL [facility] Stop: 11/04/18 18:01 Last Admin: 10/31/18 08:54 Dose: 75 mg Fluticasone/Salmeterol (Advair) 1 puffs IH DAILY [facility] Stop: 04/29/19 08:59 Last Admin: 10/31/18 10:13 Dose: Not Given Point of Care Test Results: Chemistry 10/30/18 14:02 POC Troponin I 0.00 ng/mL ng/mL (0.00-0.08) Departure - Departure Disposition: [facility] Inpatient Acute Clinical Impression: Influenza A Dyspnea Qualifiers: Dyspnea type: unspecified Qualified Code(s): R06.00 - Dyspnea, unspecified Chest pain Qualifiers: Chest pain type: other chest pain Qualified Code(s): R07.89 - Other chest pain Condition: Fair Report Scribed for: Anali Mejía Report Scribed by: Janice Joyce Date of Report: 10/30/18 Time of Report: 14:51 Physician Review and Approval Statement: 10/30/18 14:38 Portions of this note were transcribed by the emergency medicine medical director. I, Dr. Anali Mejía, personally performed the history, physical exam, and medical decision- making; and confirmed the accuracy of the information in the transcribed note.
[2018-10-30] MEDS ORDERED: IPRATROPIUM/ALBUTEROL 3 ML DEYVIAL ONE (14:25)
[2018-10-30] MEDS ORDERED: IPRATROPIUM/ALBUTEROL 3 ML DEYVIAL IH ONE (14:25)
[2018-10-30 14:33] LABS: PLATELET COUNT 219 10^3/uL (150-400)
[2018-10-30] MEDS ORDERED: FAMOTIDINE 20 MG/NACL 50 ML IV ONE (15:43)
[2018-10-30] MEDS ORDERED: methylPREDNISolone SOD SUCC 125 MG/2 ML VIAL IVP ONE (15:43)
[2018-10-30] MEDS ORDERED: NS 1,000 ML IV SCH ×2 (15:45→18:45)
--- NOTE | 2018-10-30 16:19 | CPEKG ---
Test Reason : OPEN Blood Pressure : / mmHG Vent. Rate : 080 BPM Atrial Rate : 080 BPM P-R Int : 202 ms QRS Dur : 103 ms QT Int : 378 ms P-R-T Axes : 003 -16 034 degrees QTc Int : 436 ms Sinus rhythm Borderline left axis deviation Confirmed by Jennifer De La Cruz ([id number]) on 10/30/2018 4:18:52 PM Referred By: JENNIFER DE LA CRUZ Confirmed By:Jennifer De La Cruz
[2018-10-30] MEDS ORDERED: IOHEXOL 350mgI/ML (OMNIPAQUE) 150 ML BTL IV ONE (16:50)
[2018-10-30] MEDS ORDERED: OSELTAMIVIR PHOSPHATE 75 MG CAP PO ONE (17:31)
[2018-10-30] MEDS ORDERED: ONDANSETRON 4 MG/2 ML VIAL IVP ONE (17:43)
[2018-10-30] MEDS ORDERED: ONDANSETRON DISINTEGRATING 4 MG TAB PO PRN (18:34)
[2018-10-30] MEDS ORDERED: LORazepam 0.5 MG TAB PO PRN (18:34)
[2018-10-30] MEDS ORDERED: ACETAMINOPHEN 325 MG TAB PO PRN (18:34)
[2018-10-30] MEDS ORDERED: ALBUTEROL 3 ML DEYVIAL IH PRN (18:34)
[2018-10-30] MEDS ORDERED: HYDROCODONE/APAP 5/325 TAB PO PRN (18:34)
[2018-10-30] MEDS ORDERED: oxyCODONE IR 5 MG TAB PO PRN (18:34)
[2018-10-30] MEDS ORDERED: ONDANSETRON 4 MG/2 ML VIAL IVP PRN (18:34)
[2018-10-30] MEDS ORDERED: PROMETHAZINE HCL 25 MG/ML INJ IVP PRN (18:34)
[2018-10-30] MEDS ORDERED: CARBOXYMETHYLCELLULOSE 1% 0.4 ML DROPERETTE EACHEYE PRN (18:40)
[2018-10-30] MEDS ORDERED: LEVALBUTEROL INHALER 200 PUFFS/15 GM MDI IH PRN (18:40)
--- NOTE | 2018-10-30 19:32 | PDGENHP ---
History and Physical - Chief Complaint chest pain, sob - History of Present Illness 68 yo F with PMH of morbid obesity, RAD, ckd and hx of ventricular arrythmias presenting with complaints of 1 week of chest pain, sob and palpitations. She notes she has had some of these symptoms longer than that but she was attributing some of the issues she was having to changing BP meds as she has issues with difficulty tolerating various medications. She has been seen by [facility] during this time, and just completed wearing a zio patch and sent that in yesterday, she is scheduled for an echocardiogram and f/u visit with them next week. She notes that yesterday her sxs got much worse and she felt as if she could not breathe. She does have a hx of RAD and chronic hypoxia but her oxygen was lower than usual--she generally runs around 89% and uses oxygen only at night, but the last couple of days she was in the low 80s during the day as well. She denies fevers, she has not had any sick contacts. She has had cough for the last week which is non productive. History Information - Allergies/Home Medication List Allergies/Adverse Reactions: amlodipine [From Norvasc] Allergy (Severe, Verified 09/09/17 08:34) Wheezing amlodipine besylate [From Norvasc] Allergy (Severe, Verified 09/09/17 08:27) Hypotension cefazolin sodium [From Ancef] Allergy (Severe, Verified 12/15/17 11:03) anaphalaxis cephalexin monohydrate [From Keflex] Allergy (Severe, Verified 12/15/17 11:03) Anaphylaxis doxycycline Allergy (Severe, Verified 12/15/17 11:03) Rash - takes with Benadryl hydrochlorothiazide Allergy (Severe, Verified 09/09/17 08:30) Rash hydromorphone [From Dilaudid] Allergy (Severe, Verified 09/09/17 08:33) Other-Enter Comments indomethacin Allergy (Severe, Verified 12/15/17 11:03) Rash,hives Iodinated Contrast- Oral and IV Dye [IV Dye, Iodine Containing] Allergy (Severe , Verified 12/15/17 11:03) SWELLING, hives iodine [Iodine] Allergy (Severe, Verified 09/09/17 08:27) Rash labetalol Allergy (Severe, Verified 09/09/17 08:29) Hypotension levofloxacin [From Levaquin] Allergy (Severe, Verified 09/09/17 08:28) Other-Enter Comments lisinopril Allergy (Severe, Verified 09/09/17 08:27) Hypotension losartan [From Cozaar] Allergy (Severe, Verified 09/09/17 08:30) Hypotension nitrofurantoin [From Macrodantin] Allergy (Severe, Verified 09/09/17 08:27) Hives Penicillins Allergy (Severe, Verified 09/09/17 08:27) Anaphylaxis Sulfa (Sulfonamide Antibiotics) Allergy (Severe, Verified 09/09/17 08:27) Anaphylaxis tramadol Allergy (Severe, Verified 09/09/17 08:32) Other-Enter Comments verapamil Allergy (Severe, Verified 09/09/17 08:34) Rash Shellfish *RETIRED-05/22/12 [Shellfish] Allergy (Intermediate, Verified 08:28) povidone-iodine [From Betadine] Allergy (Verified 12/15/17 11:03) weepy blisters soap [From Betadine] Allergy (Verified 12/15/17 11:03) weepy blisters Home Medications: Allopurinol [Allopurinol 300 MG (RX)] 150 mg PO BID 07/16/14 [Last Taken ] Atorvastatin Calcium [Lipitor 20 mg (*)] 20 mg PO HS 07/16/14 [Last Taken ] Calcium Carbonate [Tums 500MG (*)] 500 mg PO BID 07/16/14 [Last Taken 10/30/18] Cholecalciferol (Vitamin D3) [Vitamin D3] 4,000 unit PO DAILY@07/16/14 [Last Taken 10/29/18] Levalbuterol Inhaler [Xopenex Hfa Inhaler (*)] 1 - 2 puffs IH QID PRN 07/16/14 [ Last Taken 10/30/18 11:00] Ranitidine HCl 150 mg PO BID@07/16/14 [Last Taken 10/30/18] Amiloride 10 mg PO BID@,07/01/17 [Last Taken 10/30/18 09:00] Anastrozole [Arimidex 1 mg (*)] 1 mg PO DAILY@07/01/17 [Last Taken 10/29/18] Calcitriol [Calcitriol (*)] 0.25 mcg PO DAILY10 07/01/17 [Last Taken 10/29/18] Magnesium Oxide [Magnesium Oxide 400 mg (*)] 1,200 mg PO TID@,,07/01/17 [ Last Taken 10/30/18] Levothyroxine [Synthroid 137 mcg (*)] 137 mcg PO [facility]09/07/17 [Last Taken 10/30/18] Magnesium Chloride [Slow-Mag] 1 each PO DAILY@09/07/17 [Last Taken 10/29/18] Magnesium Chloride [Slow-Mag] 2 each PO BID@09/07/17 [Last Taken 10/30/18] clonIDINE [Catapres-Tts (*)] 0.3 mg TD TU@09/07/17 [Last Taken 10/24/18] Fluticasone/Salmeter 250/50Mcg [Advair 250/50 (*)] 1 puffs IH DAILY 12/13/17 [ Last Taken 10/29/18] Spironolactone [Aldactone 25 MG (*)] 25 mg PO DAILY@12/13/17 [Last Taken ] Aspirin [Aspirin 325 mg (*)] 325 mg PO DAILY 10/30/18 [Last Taken 10/30/18] Carboxymethylcellulose 1% [Refresh Celluvisc (*)] 1 drop EACHEYE TID PRN [Last Taken Unknown] Carvedilol [Coreg (*)] 3.125 mg PO BID@10/30/18 [Last Taken 10/30/18 09:00 ] Felodipine [Felodipine ER] 10 mg PO HS 10/30/18 [Last Taken 10/29/18] Fluorometholone [Fml (*)] 1 drop EACHEYE AD 10/30/18 [Last Taken 10/30/18] Levothyroxine [Synthroid 137 mcg (*)] 68.5 mcg PO TU 10/30/18 [Last Taken ] I have personally reviewed and updated: family history, medical history, social history, surgical history - Past Medical History asthma, coronary artery disease (non obstructive), cancer (thyroid/breast), hypertension, hyperlipidemia Additional medical history: CKD. graves. gout. hypothyroid/hypoparathyroid. chronic pain/continuous opiate use and dependency. chronic hypomagnesemia - Surgical History Additional surgical history: cardiac ablation x 2. 2 TkA. thyroid/ parathyroidectomy. lumbar/cervical fusions. c section. 2 breast lumpectomy - Family History Positive for: non-pertinent - Social History Smoking Status: Never smoked Alcohol Use: Rarely Drug Use: None Additional social history: lives indpenedently with her Review of Systems Review of Systems: ROS: 10pt was reviewed & negative except for what was stated in HPI & below Physical Exam Physical Exam: Temp Pulse Resp BP Pulse Ox 37.4 C 80 18 146/93 H 95 10/30/18 18:56 10/30/18 18:56 10/30/18 18:56 10/30/18 18:56 10/30/18 18:56 O2 (L/minute) 2 Constitutional: chronically ill appearing, obese Eyes: PERRL, anicteric sclera Ears, Nose, Mouth, Throat: moist mucous membranes, hearing normal Cardiovascular: regular rate and rhythym, no murmur, rub, or gallop, No edema Respiratory: no respiratory distress, reduced air movement, expiratory wheeze Gastrointestinal: normoactive bowel sounds, soft, non-tender abdomen Genitourinary: no bladder tenderness Skin: warm, normal color Musculoskeletal: no muscle tenderness Neurologic: AAOx3 Psychiatric: interacting appropriately, not anxious, not encephalopathic Lab Data & Imaging Review 10/30/18 14:00 10/30/18 14:00 WBC 7.56 10^3/uL (3.80-9.50) 10/30/18 14:00 RBC 5.00 10^6/uL (4.18-5.33) 10/30/18 14:00 Hgb 13.0 g/dL (12.6-16.3) 10/30/18 14:00 Hct 41.2 % (38.0-47.0) 10/30/18 14:00 MCV 82.4 fL (81.5-99.8) 10/30/18 14:00 MCH 26.0 pg (27.9-34.1) L 10/30/18 14:00 MCHC 31.6 g/dL (32.4-36.7) L 10/30/18 14:00 RDW 16.1 % (11.5-15.2) H 10/30/18 14:00 Plt Count 219 10^3/uL (150-400) 10/30/18 14:00 MPV 9.2 fL (8.7-11.7) 10/30/18 14:00 Neut % (Auto) 71.4 % (39.3-74.2) 10/30/18 14:00 Lymph % (Auto) 12.8 % (15.0-45.0) L 10/30/18 14:00 [place] % (Auto) 13.0 % (4.5-13.0) 10/30/18 14:00 Eos % (Auto) 1.7 % (0.6-7.6) 10/30/18 14:00 Baso % (Auto) 0.7 % (0.3-1.7) 10/30/18 14:00 Nucleat RBC Rel Count 0.0 % (0.0-0.2) 10/30/18 14:00 Absolute Neuts (auto) 5.40 10^3/uL (1.70-6.50) 10/30/18 14:00 Absolute Lymphs (auto) 0.97 10^3/uL (1.00-3.00) L 10/30/18 14:00 Absolute Monos (auto) 0.98 10^3/uL (0.30-0.80) H 10/30/18 14:00 Absolute Eos (auto) 0.13 10^3/uL (0.03-0.40) 10/30/18 14:00 Absolute Basos (auto) 0.05 10^3/uL (0.02-0.10) 10/30/18 14:00 Absolute Nucleated RBC 0.00 10^3/uL (0-0.01) 10/30/18 14:00 Immature Gran % 0.4 % (0.0-1.1) 10/30/18 14:00 Immature Gran # 0.03 10^3/uL (0.00-0.10) 10/30/18 14:00 D-Dimer 1.23 ug/mLFEU (0.00-0.50) H 10/30/18 14:00 Sodium 137 mEq/L (135-145) 10/30/18 14:00 Potassium 4.3 mEq/L (3.5-5.2) 10/30/18 14:00 Chloride 101 mEq/L (97-110) 10/30/18 14:00 Carbon Dioxide 27 mEq/l (22-31) 10/30/18 14:00 Anion Gap 9 mEq/L (6-14) 10/30/18 14:00 BUN 17 mg/dL (7-23) 10/30/18 14:00 Creatinine 1.1 mg/dL (0.6-1.0) H 10/30/18 14:00 Estimated GFR 50 10/30/18 14:00 Glucose 104 mg/dL (70-100) H 10/30/18 14:00 Calcium 8.8 mg/dL (8.5-10.4) 10/30/18 14:00 POC Troponin I 0.00 ng/mL (0.00-0.08) 10/30/18 14:02 NT-Pro-B Natriuret Pep 251 pg/mL (0-125) H 10/30/18 14:00 Visualized and Interpreted Chest x-ray results: Yes Chest X-Ray results: other (mild bronchitis) Visualized and Interpreted imaging results: Yes Interpretation: CTA: no central PE but limited study, bronchitis with mucus plugging Visualized and Interpreted EKG results: Yes EKG Interpretation: Positive for: normal sinsus rhythm Assessment & Plan Assessment: Chest pain (Acute) Dyspnea (Acute) Influenza A (Acute) 68 yo F with PMH of RAD, morbid obesity, ventricular arrhythmia presenting with cp and sob and found to have influenza A # influenza A: suspect this is in large part responsible for many of her presenting complaints but perhaps not all, started on tamiflu, non toxic appearing, no e/o pna. # chest pain/palpitations: this has been present for at least the last week maybe 3, she is followed by [facility] and recently completed wearing a ZIO patch, will monitor on tele, serial trops, will obtain echo in am as she was to do this next week and request cardiology to eval patient in house # chronic hypoxic respiratory failure: patient states she has been in the low 80s at home but that her baseline is 89% on RA, she has been at her usual baseline since arrival here, will monitor # RAD: on arrival with some wheezing and increased wob that has improved s/p nebs, will continue nebs overnight, lungs currently relatively clear so will hold off on steroids for the time being # ckd: currently better than her usual baseline # chronic pain/continuous opiate use and dependency: will continue home regimen # morbid obesity: recommend lifestyle modification # chronic medical issues: hypothyroid, hypoparathyroid, chronic mag deficiency, hx of breast cancer, gout--continue home regimen # observation status Patient new to my care. Old records reviewed and summarized as above. Care plan reviewed with ER doctor as above. Further hx obtained from patients present at bedside.
[2018-10-30] MEDS: IPRATROPIUM/ALBUTEROL 3 ML DEYVIAL IH SCH (20:46)
[2018-10-30] MEDS ORDERED: ATORVASTATIN CALCIUM 20 MG TAB PO SCH (21:00)
[2018-10-30] MEDS ORDERED: FELODIPINE 5 MG TAB.ER PO SCH (21:00)
[2018-10-30] MEDS: FLUOROMETHOLONE 0.1% EACHEYE SCH (21:04)
[2018-10-30] MEDS: ALLOPURINOL 300 MG TAB PO SCH (21:08)
[2018-10-30] MEDS: MAGNESIUM OXIDE 400 MG TAB PO SCH (21:08)
[2018-10-30] MEDS: CALCIUM CARBONATE 500 MG CHEWABLE TAB PO SCH (21:08)
[2018-10-30] MEDS: MAGNESIUM CHLORIDE 64 MG TAB PO SCH (21:12)
[2018-10-31 05:12] LABS: PLATELET COUNT 195 10^3/uL (150-400)
[2018-10-31] MEDS: IPRATROPIUM/ALBUTEROL 3 ML DEYVIAL IH SCH ×2 (05:32→10:13)
[2018-10-31] MEDS ORDERED: LEVOTHYROXINE 137 MCG TAB PO SCH (06:00)
[2018-10-31] MEDS ORDERED: OSELTAMIVIR PHOSPHATE 75 MG CAP PO SCH (08:00)
[2018-10-31] MEDS: AMILORIDE 5 MG TAB PO SCH ×2 (08:52→13:18)
[2018-10-31] MEDS: CALCIUM CARBONATE 500 MG CHEWABLE TAB PO SCH (08:53)
[2018-10-31] MEDS: ALLOPURINOL 300 MG TAB PO SCH (08:53)
[2018-10-31] MEDS: MAGNESIUM OXIDE 400 MG TAB PO SCH (08:53)
[2018-10-31] MEDS: MAGNESIUM CHLORIDE 64 MG TAB PO SCH (08:53)
[2018-10-31] MEDS: FLUOROMETHOLONE 0.1% EACHEYE SCH (08:54)
[2018-10-31] MEDS ORDERED: CARVEDILOL 3.125 MG TAB PO SCH (09:00)
[2018-10-31] MEDS ORDERED: FLUTICASONE/SALMETER 250/50MCG DISKUS IH SCH (09:00)
[2018-10-31] MEDS ORDERED: FAMOTIDINE 20 MG TAB PO SCH (09:00)
[2018-10-31] MEDS ORDERED: ASPIRIN 325 MG TAB PO SCH (09:00)
--- NOTE | 2018-10-31 09:12 | HOSPPROG ---
Hospitalist Progress Note Assessment/Plan: 68 yo F with PMH of RAD, morbid obesity, ventricular arrhythmia presenting with cp and sob and found to have influenza A. First encounter, chart reviewed. # influenza A -presented w chest pain and shortness of breath, likely the flu is the etiology of this -Tamiflu # chest pain/palpitations -has had a ZIO monitor-Dr Evans said they will review in the office -trop neg x2 -tele shows sinus -Dr Evans reviewed her echo, stable # chronic hypoxic respiratory failure -elevated d dimer-CTA shows no PE # RAD -on arrival with some wheezing and increased wob -on nebs # ckd: currently better than her usual baseline # chronic pain/continuous opiate use and dependency: will continue home regimen # morbid obesity: recommend lifestyle modification # chronic medical issues: hypothyroid, hypoparathyroid, chronic mag deficiency, hx of breast cancer, gout--continue home regimen #plan: will see how she does today, but hopefully can dc home later; will dc fluids. Subjective: Izabela is not c/o pain, has had some ongoing congestion in her lungs. Objective: Vital Signs Temp Pulse Resp BP Pulse Ox 35.8 C L 71 18 144/78 H 94 10/31/18 07:37 10/31/18 07:37 10/31/18 07:37 10/31/18 07:37 10/31/18 07:37 Laboratory Results 10/31/18 04:58 10/31/18 04:58 10/30/18 10/31/18 11/01/18 05:59 05:59 05:59 Intake Total 1425 Output Total 900 Balance 525 - Physical Exam Constitutional: not in pain, obese Eyes: PERRL Ears, Nose, Mouth, Throat: hearing normal Cardiovascular: regular rate and rhythym, edema (ankle and generalized body edema) Respiratory: no respiratory distress, rhonchi (few scattered when she coughs) Gastrointestinal: normoactive bowel sounds Skin: warm Neurologic: AAOx3 Psychiatric: interacting appropriately ICD10 Worksheet Patient Problems: Problems Problem Status Onset Chest pain Acute Dyspnea Acute Influenza A Acute Apnea spell Acute Cervical stenosis of spine Acute Neck pain Acute Opiate overdose Acute
[2018-10-31] MEDS ORDERED: CALCITRIOL 0.25 MCG CAP PO SCH (10:00)
--- NOTE | 2018-10-31 10:27 | ECHO ---
[email or web address] [address] [address] Main: [phone] Fax: Transthoracic Echocardiogram Name: WENDY FERRELL MR#: [id number] Study Date: 10/31/2018 Study Time: 07:56 AM Date of : 1950 Age: 68 year(s) Height: 157.5 cm (62 in.) Weight: 123.83 kg (273 lb.) BSA: 2.18 m2 Gender: Female Examination: Echo Indication: Chest Pain, Palpitations Image Quality: Adequate Contrast: Requested by: Samson Mendoza BP: 144 mmHg/78 mmHg Heart Rate: Rhythm: Indication: Chest Pain, Palpitations Procedure Staff Lieutenant Fire Fighter: Renetta Maynard [facility] Reading Physician: Romeo Evans MD Requesting Provider: Measurements: Chambers Valvular Assessment AV/MV Valvular Assessment TV/PV Normal Normal Normal Name Value Range Name Value Range Name Value Range Ao Jaimee (2D): 2.5 cm (1.4 cm-2.6 AV Vmax: 1.87 m/s (1 m/s-1.7 PV Vmax: 1.13 m/s (0.6 m/s-0.9 cm) m/s) m/s) IVSd (2D): 1.1 cm (0.6 cm-1.1 AV maxP mmHg ( - ) PV PGmax: 5 mmHg ( - ) cm) AV meanP mmHg ( - ) LVDd (2D): 5.4 cm (3.9 cm-5.3 LASHONDA (VTI): 1.7 cm ( - ) cm) MV E Vmax: 1.26 m/s ( - ) LVDs (2D): 3.4 cm (2.1 cm-4 MV A Vmax: 1.17 m/s ( - ) cm) MV E/A: 1.08 ( - ) LVPWd (2D): 1.1 cm ( - ) MV PHT: 0.055 s ( - ) LVOTd 1.9 cm 1.9 cm mm MVA (PHT): 4.0 s ( - ) Visual EF: 55 % RVDd(2D): 3.3 cm (1.9 cm-3.8 cmmm) Continued Measurements: Chambers Valvular Assessment AV/MV Name Value Name Value LADs: 3.5 cm MV DecTime: 194 m/s LADs Lon.9 cm MV E' Septal: 0.07 m/s LA Area: 20.5 cm2 MV E/E' Septal: 17.50 LA Volume: 63 ml MV E/E' Lateral: 15.60 LA Volume Index: 28.9 ml/m2 RA Area: 18.6 cm2 Additional Vessels Patient: WENDY FERRELL Study Date: 10/31/2018 Page 1 of 2 07:56 AM Name Value Ao Ascendin.9 cm Findings: Left Ventricle: Normal size left ventricle. No LV hypertrophy. Normal global systolic LV function. The ejection fraction is visually estimated to be 55 %. No regional wall motion abnormality. Grade 1 diastolic dysfunction (abnormal relaxation). Right Ventricle: Normal size right ventricle. Normal RV function. Left Atrium: The left atrium is normal in size. Right Atrium: The right atrium is borderline dilated. Mitral Valve: The mitral valve is normal in appearance and function. Trivial mitral valve regurgitation. No mitral stenosis is present. Aortic Valve: The aortic valve is tri-leaflet. There is no significant aortic valve regurgitation. No aortic valve stenosis is present. Tricuspid Valve: The tricuspid valve is normal in appearance and function. Trivial tricuspid valve regurgitation. Pulmonic Valve: Pulmonary valve not well visualized. Aorta: The aorta is normal. Normal size aortic root measuring 2.5 cm. Normal size ascending aorta measuring 2.9 cm. IVC: Technically difficult subcostal imaging. Pericardium: No pericardial effusion. There is pericardial fat. (No Signature Object) Patient: WENDY FERRELL Study Date: 10/31/2018 Page 2 of 2 07:56 AM [id number]
[2018-10-31] MEDS ORDERED: IPRATROPIUM/ALBUTEROL 3 ML DEYVIAL IH PRN (10:30)
[2018-10-31] MEDS ORDERED: LEVALBUTEROL INHALER 200 PUFFS/15 GM MDI IH PRN (11:38)
--- NOTE | 2018-10-31 11:53 | GCON ---
[f rep st] CONSULTATION CARDIOLOGY CONSULTATION DATE OF CONSULTATION: 10/31/2018 REFERRING PHYSICIAN: Malorie Song NP REASON FOR CONSULTATION: Chest pain. HISTORY OF PRESENT ILLNESS: This patient is a pleasant 68-year-old female with history of hypertensi on, hyperlipidemia, chronic renal insufficiency, morbid obesity, shortness of breath, obstructive sle ep apnea, history of breast cancer, as well as a history of supraventricular tachycardia, who present s to [facility] with a 1-week history of complaints of intermittent episodes of atypi garo chest pain, shortness of breath, and palpitations. She had been seen in our office on October 132018, with similar complaints. During her office visit last week, she was arranged for an echocardiogram and a Zio patch monitor. S he wore the Zio patch monitor for several days and took it off and returned it, stating that she had experienced her palpitations and chest pain. However, she did not complete the full 2-week monitorin g. On her evaluation here at [facility], she has been found to have influenza A. Currently, at the time of my exam, she is chest pain free. She has a myriad of complaints including intermittent palpitations, some left arm swelling secondary to lymphedema after left-sided axillary l ymphadenopathy in the setting of breast cancer and bilateral ankle edema. She denies complaints of dizziness, lightheadedness, near syncope, or syncope. She has no exertional symptoms. ECG on admission demonstrates sinus rhythm with left axis deviation and no evidence of ischemia. Echocardiogram performed today demonstrates normal left ventricular function with no wall motion abno rmalities. No significant valvular disease and no evidence of pericardial effusion. She does have p ericardial fat pad. Troponins have been negative x2. She did undergo diagnostic left heart catheterization on September 07, 2017, with my colleague, Dr. Trell shelley, demonstrating normal coronary arteries, normal left ventricular function, and normal LVEDP. PAST MEDICAL HISTORY: Hypertension, hyperlipidemia, breast cancer, asthma, GERD, Graves disease, ane kendell, obesity, obstructive sleep apnea, osteoarthritis. MEDICATIONS ON ADMISSION: Please see summary. ALLERGIES: Patient has a prolonged list of allergies. Please see chart for further details. PHYSICAL EXAMINATION: VITAL SIGNS: Blood pressure 144/78, heart rate 71, oxygen saturation 94% on r oom air, temperature 35.8. GENERAL: She is awake, alert, oriented, appropriate. No apparent distre ss. NECK: " There is no evidence of JVP or carotid bruits. LUNGS: Clear to auscultation bilaterall y. CARDIAC: S1, S2. Regular rate and rhythm. No murmurs, rubs, or gallops. ABDOMEN: Obese, soft , nontender. EXTREMITIES: She has trace bilateral ankle edema. LABORATORY AND DIAGNOSTIC FINDINGS: Hemoglobin of 12.3, hematocrit 40.4, platelet count 195. Sodium 137, potassium 4.6, chloride 106, bicarb 24, BUN 21, creatinine 1, glucose 169, magnesium 2.0. Trop onin less than 0.012 x2. N-terminal proBNP 251. ECG demonstrates sinus rhythm, left axis deviation, no evidence of ischemia or infarction. Echocardiogram performed today demonstrates normal left ventricular function. No evidence of wall mo tion abnormalities. Normal right ventricular function. No pericardial effusion. IMPRESSION: 1. Atypical chest pain. 2. Influence A. 3. Hypertension. 4. Palpitations. PLAN: 1. Recommend patient continue current medications. 2. Would not modify blood pressure medications during the setting of an acute illness. 3. Patient is scheduled to follow up with Midny Fajardo NP's office next month to review Zio patch results which have not been returned to our office to date. 4. No indication for further ischemic workup based off the workup that has been completed to date. /[id number]/MODL
[2018-10-31] MEDS ORDERED: guaiFENesin 600 MG TAB.ER PO SCH (12:15)
[2018-10-31] MEDS ORDERED: CHOLECALCIFEROL VIT D3 2,000 UNITS TAB/CAP PO SCH (14:00)
[2018-10-31 15:47] VITALS: BP 142/76
[2018-10-31] MEDS ORDERED: MAGNESIUM CHLORIDE 64 MG TAB PO SCH (17:00)
[2018-10-31] MEDS ORDERED: ANASTROZOLE 1 MG TAB PO SCH (17:00)
[2018-10-31] MEDS ORDERED: SPIRONOLACTONE 25 MG TAB PO SCH (17:00)
--- NOTE | 2018-10-31 17:19 | GDS ---
[f rep st] DISCHARGE SUMMARY DISCHARGE DIAGNOSES: 1. Influenza A. 2. Chest pain, palpitations. 3. Chronic hypoxemic respiratory failure. 4. Reactive airway disease. 5. Chronic kidney disease. 6. Chronic pain, continuous opiate use and dependency. 7. Morbid obesity. CONSULTATION DURING HER STAY: Dr. Romeo Evans with cardiology. Briefly, the patient is a very nice 68-year-old female with a history of reactive airway disease, morbid obesity, and ventricular arrhythmias. She presented with chest pain, shortness of breath and noted to have influenza A. She improved nicely. She was seen and evaluated by Dr. Romeo Evans. He recommended that she follow up with Mindy Fajardo in the next month to review the ZIO patch results. Echocardiogram showed normal LV function. She has no evidence of wall motion abnormalities. She has normal right ventricular function without any type of pericardial effusion. She will be discharged home today. HOSPITAL COURSE PER PROBLEM: 1. Influenza A. She is feeling markedly better. Have added Mucinex to help loosen up her secretions. 2. Chest pain, palpitations. She had a ZIO monitor. She needs to follow up with Cardiology. I reviewed her classroom monitor. She has been in sinus. Her troponin x2 were checked, which were negative. 3. Chronic hypoxemic respiratory failure. She had an elevated D-dimer. Her CTA shows no pulmonary emboli. 4. Reactive airway disease, stable. 5. Chronic kidney disease, stable. 6. Chronic pain. Continuous opiate use and dependency. Continue her home regimen. 7. Morbid obesity. Recommended lifestyle modifications. DISCHARGE CONDITION: Stable. Blood pressure is 126/71, heart rate is 68, respiratory rate of 18, O2 sats on room air 93%, temperature 39.6 Celsius. MEDICATIONS AT DISCHARGE: Please see the EMR. DISCHARGE INSTRUCTIONS: 1. Follow up with Cardiology in the next month to review her ZIO monitor. 2. Get a repeat CT in 3-6 months. It was noted on her CT scan that she has a stable right middle lobe parenchymal fibrosis with new mucous plugging in the anterior upper lobe. 3. If she develops fever, chills, chest pain, or shortness of breath, return to the ER. /[id number]/MODL MTDD
[2018-11-01] MEDS ORDERED: LEVOTHYROXINE 137 MCG TAB PO SCH (06:00)
== END 2018-10-31 16:27 | disposition home or self-care (01) ==
LOC: INTOOBSV 17:28 → F3E 18:38
PROVIDERS: ADMIT Internal Medicine; ATTEND Internal Medicine
DX: J10.1 Influenza due to other identified influenza virus with other respiratory manifestations (principal); R07.9 Chest pain, unspecified; R00.2 Palpitations; J96.91 Respiratory failure, unspecified with hypoxia; I12.9 Hypertensive chronic kidney disease with stage 1 through stage 4 chronic kidney disease, or unspecified chronic kidney disease; N18.9 Chronic kidney disease, unspecified; E78.5 Hyperlipidemia, unspecified; I25.10 Atherosclerotic heart disease of native coronary artery without angina pectoris; G89.29 Other chronic pain; F12.20 Cannabis dependence, uncomplicated; E66.01 Morbid (severe) obesity due to excess calories; J45.909 Unspecified asthma, uncomplicated; K21.9 Gastro-esophageal reflux disease without esophagitis; Z85.3 Personal history of malignant neoplasm of breast; Z96.653 Presence of artificial knee joint, bilateral; Z98.1 Arthrodesis status; Z98.891 History of uterine scar from previous surgery
CPT/HCPCS: 71046; 71275; 93005; 93306; 97165; G0378; J1200; J2405; J2930; Q9967; 84484-ER; 96374

== ENCOUNTER → 2018-12-14 | Outpatient (CLI) | payer OTHER | LOC: FIMAGING 15:19 | PROVIDERS: ATTEND Physician Assistant Surgical | DX: Z09 Encounter for follow-up examination after completed treatment for conditions other than malignant neoplasm (principal); Z98.1 Arthrodesis status ==